=== PATIENT | female | born 1990 | race Caucasian/White ===

== ENCOUNTER 2024-04-20 13:52 | Emergency (ER) | payer MEDICAID, SELFPAY ==
[2024-04-20 14:12] VITALS: BP 100/75; PULSE 80; RESP 16; TEMP 36.8; O2SAT 100
--- NOTE | 2024-04-20 14:13 | HMH.EDGENADL ---
Discharge Plan Disposition Patient Disposition: Home, Self-Care Condition: Good Prescriptions Prescriptions: New amoxicillin-pot clavulanate 875-125 mg tablet 1 tab PO BID Qty: 20 0RF No Action ondansetron 4 mg tablet,disintegrating 4 mg PO Q6H PRN (Reason: nausea and vomiting) Qty: 10 0RF Referrals Follow up/Referrals: Addi Clemens MD [Staff Physician] - See instructions (Second opinion for a infected seroma) Luis Alfredo Fried MD [Primary Care Provider] - See instructions Activity Restrictions/Add. Instructions Additional Instructions/Restrictions: Please take antibiotics until they are gone. I have referred you to general surgery please call make an appointment. Return for any increase in redness drainage pain swelling as needed to the ER Clinical Impressions Clinical Impression: Post-operative complication Qualifiers: Surgical complication system/body Area: skin Surgical complication type: seroma Instructions Patient Instructions: DI for Skin Abscess Discharge ED Provider: Clement Martinez General Adult HPI <ROSEMARY Edwards - Last Filed: 04/20/24 15:04> General Chief complaint: Skin/Abscess/Foreign Body Stated complaint: surgical wound on stomach looks infected Time Seen by Provider: 04/20/24 14:08 History of Present Illness HPI narrative: Patient presents for evaluation of a postoperative complication. Patient had laparoscopic surgery done on March 29 and then subsequently had reoperation for scopic Li approximately 2 weeks later through the same infraumbilical incision. Patient saw her surgeon for complaint of swelling in the operative area and an ultrasound was done which showed a seroma according to the patient. Patient presents now with redness at the right lateral aspect of the infraumbilical incision. Patient reports it is painful and tender but has not been draining. She denies fever chills hemoptysis hematochezia melena nausea vomit diarrhea. Related Data Previous Rx's Medication Instructions Recorded amoxicillin 875 mg-potassium 1 tab PO BID #20 tabs 04/20/24 clavulanate 125 mg tablet ondansetron 4 mg disintegrating 4 mg PO Q6H PRN nausea and 04/20/24 tablet vomiting #10 tabs Allergies Allergy/AdvReac Type Severity Reaction Status Date / Time sulfamethoxazole Allergy Unknown Unverified 11/16/17 14:10 [From BACTRIM] trimethoprim [From BACTRIM] Allergy Unknown Unverified 11/16/17 14:10 PFS <ROSEMARY Edwards - Last Filed: 04/20/24 15:04> [facility] Disclaimer: The information contained in this section may have been updated after the patient was seen, as this information can be updated by other users. Social History (Updated 04/20/24 @ 15:04 by ROSEMARY Edwards) Smoking Status: Never smoker alcohol intake: never current occupational status: employed Travel in the last 8 weeks: None <ROSEMARY Edwards - Last Filed: 04/20/24 15:04> ROS Obtained: Yes Systems reviewed as appropriate & no additional complaints except as documented Physical Exam <ROSEMARY Edwards - Last Filed: 04/20/24 15:04> General General appearance: alert and in no apparent distress Respiratory Respiratory exam: Present normal lung sounds bilaterally Cardiovascular Cardiovascular exam: Present regular rate Abdominal Exam Abdominal exam: Present soft; Absent tenderness (At the for umbilical surgical incision) Neurological Exam Neurological exam: Present alert and oriented X3 Skin Skin exam: Present warm, dry and erythema (Right lateral infraumbilical incision) Medical Decision Making <ROSEMARY Edwards - Last Filed: 04/20/24 15:04> Zeferino Inquiry Pt receiving controlled substance: No Vital Signs: 04/20/24 14:12 04/20/24 15:00 Temperature 98.2 F 97.9 F Temperature Source Oral Oral Pulse Rate 63 Pulse Rate [Left Radial] 80 Respiratory Rate 16 18 Blood Pressure 126/68 Blood Pressure [Right Arm] 100/75 L Blood Pressure Mean [Right Arm] 83 Blood Pressure Source Automatic Cuff Blood Pressure Position Sitting 02 Sat by Pulse Oximetry 100 Oxygen Delivery Method Room Air Orders (Tests/Meds): ED MEDICATIONS Discontinued Medications Generic Name Dose Route Start Last Admin Trade Name Freq PRN Reason Stop Dose Admin Amoxicillin/Clavulanate Potassium 1 each 04/20/24 14:29 04/20/24 14:40 Amoxicillin/Clavulanate Potassium 875/125mg Tablet PO 04/20/24 14:30 1 each ONCE ONE Administration Medical Decision Narrative: In summary patient is a very pleasant 34-year-old female who presents to the emergency department for evaluation of postoperative surgical site complication. Patient is hemodynamically stable upon arrival, afebrile. Physical exam is remarkable for superficial erythema at the right lateral aspect of her infraumbilical surgical incision. The borders have been marked with an ink pen by myself. I do not feel a stitch protruding but it appears to be closed with subcuticular stitch Monocryl. There is no drainage from the surgical site I do not feel fluctuance immediately underneath the surgical incision. Differential diagnosis includes cellulitis versus stitch abscess versus infected seroma. As patient has already had evaluation by her surgeon with an ultrasound that definitively confirmed a seroma further workup is deferred. Initial intervention is oral antibiotics with first dose here. Given that this likely requires surgical evaluation for possible incision and drainage patient is referred to general surgery as an outpatient. Patient discharged with a prescription for Augmentin with first dose given here. <Clement Martinez MD - Last Filed: 04/21/24 08:23> Vital Signs: 04/20/24 14:12 04/20/24 15:00 Temperature 98.2 F 97.9 F Temperature Source Oral Oral Pulse Rate 63 Pulse Rate [Left Radial] 80 Respiratory Rate 16 18 Blood Pressure 126/68 Blood Pressure [Right Arm] 100/75 L Blood Pressure Mean [Right Arm] 83 Blood Pressure Source Automatic Cuff Blood Pressure Position Sitting 02 Sat by Pulse Oximetry 100 Oxygen Delivery Method Room Air Orders (Tests/Meds): ED MEDICATIONS Discontinued Medications Generic Name Dose Route Start Last Admin Trade Name Freq PRN Reason Stop Dose Admin Amoxicillin/Clavulanate Potassium 1 each 04/20/24 14:29 04/20/24 14:40 Amoxicillin/Clavulanate Potassium 875/125mg Tablet PO 04/20/24 14:30 1 each ONCE ONE Administration Medical Decision Narrative: In summary patient is a very pleasant 34-year-old female who presents to the emergency department for evaluation of postoperative surgical site complication. Patient is hemodynamically stable upon arrival, afebrile. Physical exam is remarkable for superficial erythema at the right lateral aspect of her infraumbilical surgical incision. The borders have been marked with an ink pen by myself. I do not feel a stitch protruding but it appears to be closed with subcuticular stitch Monocryl. There is no drainage from the surgical site I do not feel fluctuance immediately underneath the surgical incision. Differential diagnosis includes cellulitis versus stitch abscess versus infected seroma. As patient has already had evaluation by her surgeon with an ultrasound that definitively confirmed a seroma further workup is deferred. Initial intervention is oral antibiotics with first dose here. Given that this likely requires surgical evaluation for possible incision and drainage patient is referred to general surgery as an outpatient. Patient discharged with a prescription for Augmentin with first dose given here. I was consulted by the CARLOS ALBERTO, and we discussed the complexity of the problems being addressed. I approved the treatment and management plan for this patient?s care in the Emergency Department, thus performing a substantive portion of the medical decision making. Clement Martinez MD Critical Care <ROSEMARY Edwards - Last Filed: 04/20/24 15:04> Critical Care Time Critical Care Time: No
[2024-04-20] MEDS: AMOXICILLIN/CLAVULANATE POTASSIUM 875/125MG TABLET 1 EACH PO (14:40)
[2024-04-20 15:00] VITALS: BP 126/68; PULSE 63; RESP 18; TEMP 36.6; O2SAT 99
== END 2024-04-20 15:00 | disposition home or self-care (01) ==
PROVIDERS: Emergency Provider Emergency Medicine; PCP Family Medicine
DX: L76.34 Postprocedural seroma of skin and subcutaneous tissue following other procedure (principal)
CPT/HCPCS: 99283

== ENCOUNTER 2024-04-20 17:37 | Emergency (ER) | payer MEDICAID, SELFPAY ==
[2024-04-20 17:39] VITALS: BP 117/70; PULSE 84; RESP 16; TEMP 36.7; O2SAT 100
--- NOTE | 2024-04-20 18:15 | ED_ITS ---
<Statement entered by Villa Obando MD - 04/20/24 23:01> I was consulted by the CARLOS ALBERTO, and we discussed the complexity of the problems being addressed. I approved the treatment and management plan for this patient's care in the emergency department, thus performing a substantive portion of the medical decision making. Villa Obando MD, DANIEL, FACEP Discharge Plan Disposition Patient Disposition: Home, Self-Care Condition: Good Prescriptions Prescriptions: New ondansetron 4 mg tablet,disintegrating 4 mg PO Q6H PRN (Reason: nausea and vomiting) Qty: 10 0RF No Action amoxicillin-pot clavulanate 875-125 mg tablet 1 tab PO BID Qty: 20 0RF Referrals Follow up/Referrals: Marce Watkins DO [Staff Physician] - See instructions (Second opinion) Luis Alfredo Fried MD [Primary Care Provider] - See instructions Activity Restrictions/Add. Instructions Additional Instructions/Restrictions: Follow-up with your PCP. You have been referred to Dr. Watkins. Clinical Impressions Clinical Impression: Nausea & vomiting Instructions Patient Instructions: DI for Diarrhea and Traveler's Diarrhea -- Adult, DI for Diarrhea and Traveler's Diarrhea -- Child, DI for Nausea -- Adult, DI for Nausea -- Child Discharge ED Provider: Villa Obando General Adult HPI General Chief complaint: Nausea/Vomiting/Diarrhea Stated complaint: vomiting Time Seen by Provider: 04/20/24 18:15 History of Present Illness HPI narrative: Patient presents for evaluation of nausea vomiting. Patient was here previously with cellulitis of the surgical site with question of concern for infected seroma. Patient took oral antibiotic here without difficulty however after leaving she had an episode of nausea vomiting and has returned with concerns about her surgical site. Patient thinks her symptoms are directly related to the area in her abdomen states she feels shaky and chilling with increased symptoms in the area. Please see my previous dictated H&P for full story. Related Data Previous Rx's Medication Instructions Recorded amoxicillin 875 mg-potassium 1 tab PO BID #20 tabs 04/20/24 clavulanate 125 mg tablet ondansetron 4 mg disintegrating 4 mg PO Q6H PRN nausea and 04/20/24 tablet vomiting #10 tabs Allergies Allergy/AdvReac Type Severity Reaction Status Date / Time sulfamethoxazole Allergy Unknown Unverified 11/16/17 14:10 [From BACTRIM] trimethoprim [From BACTRIM] Allergy Unknown Unverified 11/16/17 14:10 PFSH [facility] Disclaimer: The information contained in this section may have been updated after the patient was seen, as this information can be updated by other users. Social History (Updated 04/20/24 @ 15:04 by ROSEMARY Edwards) Smoking Status: Never smoker alcohol intake: never current occupational status: employed Travel in the last 8 weeks: None ROS Obtained: Yes Systems reviewed as appropriate & no additional complaints except as documented Physical Exam General General appearance: alert Respiratory Respiratory exam: Present normal lung sounds bilaterally Cardiovascular Cardiovascular exam: Present regular rate and normal rhythm Neurological Exam Neurological exam: Present alert and oriented X3 Other Other exam information: At the right lateral aspect of her surgical site in the infraumbilical area there is an area that was previously marked with an ink pen by myself earlier today that shows significant regression of the erythema from the border of the area. No drainage no fluctuance Medical Decision Making Medical Records Medical records reviewed: Yes I reviewed the patient's medical records. Zeferino Inquiry Pt receiving controlled substance: No Vital Signs: 04/20/24 17:39 Temperature 98.0 F Temperature Source Oral Pulse Rate [Radial] 84 Respiratory Rate 16 Blood Pressure [Left Arm] 117/70 Blood Pressure Mean [Left Arm] 85 Blood Pressure Source [Left Arm] Automatic Cuff Blood Pressure Position [Left Arm] Sitting 02 Sat by Pulse Oximetry 100 Oxygen Delivery Method Room Air Lab Data Lab results reviewed: Yes I reviewed the patient's lab results. Lab Results 04/20/24 19:54: WBC 6.1, RBC 4.33, Hgb 13.3, Hct 41.5, MCV 95.8, MCH 30.7, MCHC 32.0, RDW 13.1, Plt Count 298, MPV 8.1, Neut % (Auto) 66.4, Lymph % (Auto) 24.0, Bullock % (Auto) 5.5, Eos % (Auto) 3.1, Baso % (Auto) 0.9, Neut # (Auto) 4.0, Lymph # (Auto) 1.5, Bullock # (Auto) 0.3, Eos # (Auto) 0.2, Baso # (Auto) 0.1, Sodium 141, Potassium 3.9, Chloride 103, Carbon Dioxide 30, Anion Gap 11.9, BUN 13, Creatinine 0.70, Estimated Creat Clear 97, Estimated GFR 97, Est GFR ( Amer) 117, Glucose 73 L, Calcium 10.0, Total Bilirubin 0.5, AST 26, ALT 20, Alkaline Phosphatase 42, Total Protein 8.3 H, Albumin 5.1 H, Globulin 3.2, Albumin/Globulin Ratio 1.6 04/20/24 19:54 04/20/24 19:54 Orders (Tests/Meds): ED MEDICATIONS Discontinued Medications Generic Name Dose Route Start Last Admin Trade Name Freq PRN Reason Stop Dose Admin Lactated Ringer's 1,000 mls @ 999 mls/hr 04/20/24 18:52 Lactated Ringer's 1000 Ml Bag IV 04/20/24 19:52 .Q1H1M ONE Ondansetron HCl 4 mg 04/20/24 18:54 Ondansetron 4mg/2ml Vial IV 04/20/24 18:55 ONCE ONE ORDERS Category Date Time Status POCUS Point of Care (ER Only) Stat Exams 04/20/24 19:10 Taken CBC w/Auto Diff [Complete Blood Count Auto Diff] Stat Lab 04/20/24 19:54 Completed CMP [Comprehensive Metabolic Panel] Stat Lab 04/20/24 19:54 Completed UA [Urinalysis and Microscopic] Stat Lab 04/20/24 19:28 Ordered Blood Culture Stat Micro 04/20/24 19:50 Received Medical Decision Narrative: In summary patient is a 34-year-old female who presents to the emergency department for evaluation of nausea vomiting. Patient is hemodynamically stable upon arrival, afebrile. Physical exam is remarkable for regression of the erythema from the previously marked borders of erythema. Differential diagnosis includes cellulitis versus other infection versus anxiety versus infective seroma etc. Initial workup will be conducted with hematologic labs [id number] ultrasound. Initial workup reviewed by me shows that her hematologic labs are nonactionable and her [id number] ultrasound showed a small fluid collection beneath the surgical site. Upon repeat evaluation patient informed of her negative workup and per her discussion with Dr. Obando earlier patient was referred to Dr. Watkins for second opinion. Given this appropriate for discharge with continued Augmentin p.o. and I have added Zofran sent to her pharmacy. Critical Care Critical Care Time Critical Care Time: No
[2024-04-20] MEDS: ONDANSETRON 4MG/2ML VIAL 4 MG IV (19:30)
[2024-04-20] MEDS: LACTATED RINGERS 1000ML 1,000 ML 999 ML IV (19:30)
[2024-04-20 20:10] LABS: Chloride 103 mmol/L (98-107); Potassium 3.9 mmoL/L (3.5-5.1); Sodium 141 mmol/L (136-145)
[2024-04-20 20:12] LABS: Basophils # 0.1 K/mm3 (0-0.2); Basophils % 0.9 % (0.1-2.0); Eosinophils # 0.2 K/mm3 (0.0-0.4); Eosinophils % 3.1 % (0.1-12.0); Hematocrit 41.5 % (37.0-47.0); Hemoglobin 13.3 g/dL (12.2-16.2); Lymphocytes # 1.5 K/mm3 (0.7-4.5); Mean Corpuscular Hemoglobin 30.7 pg (27.0-31.2); Mean Corpuscular Volume 95.8 fl (81-99); Mean Platelet Volume 8.1 fl (7.4-10.4); Monocytes # 0.3 K/mm3 (0.1-1.0); Monocytes % 5.5 % (1.7-9.3); Neutrophils % 66.4 % (37.0-80.0); Platelet Count 298 K/mm3 (142-424); Red Blood Count 4.33 M/mm3 (4.20-5.40); Red Cell Distribution Width 13.1 % (11.5-17.5); White Blood Count 6.1 K/mm3 (4.8-10.8)
[2024-04-20 20:13] LABS: Alanine Aminotransferase 20 U/L (12-78); Albumin Level 5.1 g/dl (3.5-5.0); Albumin/Globulin Ratio 1.6 (1.1-1.8); Alkaline Phosphatase 42 U/L (38-126); Anion Gap 11.9 mEq/L (5-15); Aspartate Amino Transferase 26 U/L (14-36); Bilirubin,Total 0.5 mg/dl (0.2-1.3); Blood Urea Nitrogen 13 mg/dl (7-17); Carbon Dioxide 30 mmol/L (22.0-30.0); Creatinine Clearance Estimated 97 mL/min (50-200); Estimated Glomerular Filt Rate 97 ml/min (>60); GFR (African American) 117 ML/MIN (>60); Globulin 3.2 g/dL (1.3-3.2); Total Protein,Serum 8.3 g/dl (6.3-8.2)
[2024-04-20 20:14] LABS: Glucose 73 mg/dl (74-100)
[2024-04-20 20:58] VITALS: BP 128/74; PULSE 64; RESP 16; TEMP 36.8; O2SAT 99
== END 2024-04-20 21:00 | disposition home or self-care (01) ==
PROVIDERS: Physician Assistant; Emergency Provider Student in an Organized Health Care Education/Training Program; PCP Family Medicine
DX: R11.2 Nausea with vomiting, unspecified (principal)
CPT/HCPCS: 80053; 85025; 87040; 96361; 96374; 99284; J2405

== ENCOUNTER 2025-08-18 21:28 | Observation (INO) | payer MEDICAID, SELFPAY ==
[2025-08-18] VITALS (17 sets, daily range): BP systolic 84–117; BP diastolic 44–77; PULSE 66–94; RESP 18; TEMP 36.7; O2SAT 98–100; BMI 19.7
--- OUTSIDE RECORDS SUMMARY | 2025-08-18 21:35 | XMS_ITS | Clinical Summary ---
Author Organization [facility] Address [address] [facility] [place] [address] Phone Care Team Providers Care Occupational Therapy Supervisor Name Role Phone Steffanie Hickey MD Unavailable [phone] Fariha MICHEL MD, Luis Alfredo [facility] P rovider Harish Bonner MD Unavailable [phone] Allergies Active Allergy Reactions Criticality Noted Date Comments Sulfamethoxazole-Trimethopri m Rash Low Lips and tongue blisters subjectively Sulfamethoxazole Hives High 08/30/2022 Trimethoprim Hives High 08/30/2022 Medications LAVENDER OIL MISC by Misc.(Non-Dr ug; Combo Route) route. lavender capsules Active ondansetron (ZOFRAN) 4 mg Oral Tablet Take by mouth every 8 hours as needed for Nausea. Active ergocalciferol (DRISDOL) 1,250 mcg (50,000 unit) Oral Capsule EVERY WEEK Active LEVOthyroxine (SYNTHROID) 25 mcg Oral TabletIndications:P rimary hypothyroidism Take 1 Tablet by mouth daily. 30 Tablet 6 5 Active Active Problems Patient Care Coordination No te Formatting of this note migh t be different from the original. Tobacco Cessation: I. Behavioral modifications: 1. Make smoking it's own behavior. 2. Change your habit. 3. Make parts of your life smoke free. 4. ID it, Stop it, Replace it. 5. Reward yourself. II. Physical addiction: Nicotine gum. III. Urges Medicines. Problem Noted Date Diagnosed Date Primary hypothyroidism 05/01/2025 Irritable bowel syndrome with constipation 02/21 Abnormal weight loss 02/16/2025 Assessment & Plan (02/16/2025 12:28 PM EDT): Will rule out hormonal causes of weight loss. Chronic autoimmune thyroiditis 02/15/2025 Assessment & Plan (02/16/2025 12:27 PM EDT): The patient has a history of chronic autoimmune thyroiditis. The nature of her condition was reviewed with the patient in detail. Will obtain thyroid function test today and decide on the need for additional intervention PTSD (post-traumatic stress disorder) 07/27/2023 Major depressive disorder, r ecurrent episode, moderate degree 07/27/2023 Goiter, nodular 09/11/2022 Assessment & Plan (02/16/2025 12:28 PM EDT): Physical exam reveals barely palpable thyroid gland with no obvious nodules. She describes the same swallowing problems as she did during her previous visit in August 2022. Her swallowing problems are not related to underlying thyroid disease. She is scheduled to see safety security officer the next week. She may require ENT consultation. She is to have a thyroid ultrasound repeated to ensure done medical stability Assessment & Plan (09/11/2022 11:39 AM EDT): The patient was found to have nodular goiter on physical exam. Thyroid ultrasound revealed bilateral thyroid nodules. The nature of condition as well as the results of work up were discussed with patient in detail. We will obtain the thyroid function test and measure antithyroid antibodies. The indications for fine-needle aspiration biopsy of the thyroid nodule to rule out thyroid cancer were presented to the patient in detail. All the questions were answered. The patient agrees to proceed with fine-needle aspiration biopsy in the near future. The recommendations will be made based on the biopsy results. Iron deficiency anemia 09/11/2022 Assessment & Plan (09/11/2022 11:40 AM EDT): Will rule out iron deficient anemia as a potential contributing factor Vitamin B12 deficiency 09/11/2022 Assessment & Plan (09/11/2022 11:40 AM EDT): Will measure vitamin B12 Chronic fatigue 09/11/2022 Assessment & Plan (09/11/2022 11:39 AM EDT): Will proceed with a work-up for treatable causes of fatigue. Dysphagia 09/11/2022 Assessment & Plan (09/11/2022 11:40 AM EDT): Dysphagia is not related to small soft nodule goiter. The patient was advised to see safety security officer uterine contractions in third trimester, antepartum 02/07/2021 Reilly Duncan contractions 01/31/2021 Nausea and vomiting in 03/28/2019 Overview (11/14/2020): Doesn't like to take medications for symptoms Encounter for supervision of normal in second trimester 02/23/2019 Overview (12/17/2020): *Had unassisted home last ~ saw us until 30 wks and then transferred to Dr. Gary until 38 wks~he was not aware that she was having home *~ She is undecided this about home CNM pt GS: requested-->NIPT low risk BRUNO by LMP PNL's nml Anatomy GCT GBS Cannabis abuse 02/23/2019 Overview (03/03/2019): Using via vape pen for nausea--> advised cessation + UDS @ [facility] Resolved Problems Problem Noted Date Diagnosed Date Resolved Date Urinary tract infection in m other during first trimester of 02/23/2019 11/14/2020 Overview (02/23/2019): Macrobid Rx'd for UTI based on sensitivities--> will need to rescreen to ensure clearance given ESBL production noted on culture Tobacco abuse disorder 02/19/201402/23 Immunizations Immunization Administration Dates Next Due DTaP 07/09/2003, 3,1992,1991 HPV Quadrivalent 02/11/2007 Hepatitis B, Unspecified Formulation 11/30/2003, 07/09/2003,06/08/2003 HiB, Unspecified Formulation 06/20/1993,08/21/19 92,1992 IPV 06/20/1993,1992,1992 MMR 06/08/2003,12/09/1993 Meningococcal Conjugate 02/11/2007 Varicella 02/11/2007 Surgical History Surgery Date Site/Laterality Comments WISDOM TOOTH EXTRACTION LAPAROSCOPY 11/29/2022 - 11/28/2023 Left left ovary removed LAPAROSCOPY 11/29/2023 - 11/28/2024 fallopian tube removed Medical History Medical History Date Comments depression first baby Anxiety disorder Urinary tract infection Goiter, nodular 09/11/2022 Iron deficiency anemia 09/11/2022 Nausea and vomiting in 03/28/2019 GERD (gastroesophageal reflux disease) Social History Tobacco Use Types Packs/Day Years Used Date Smoking Tobacco: Some Days Cigarettes Last attempted to quit: 06/29/2016 Smokeless Tobacco: Current Tobacco Cessation:Ready to Q uit: Not Asked; Counseling Given: Not Answered Alcohol Use Standard Drinks/Week Comments No 0 (1 standard drink = 0.6 oz pur e alcohol) Sexually Active Control Partners Comments Not Currently Abstinence Male Comments No Sex and Gender Information Value Date Recorded Sex Assigned at Not on file Legal Sex Female 9:37 PM EDT Gender Identity Not on file Sexual Orientation Not on file Obstetrics History Para Term AB IAB SAB Ectopic Multiple Livin g Live Births 3 2 2 2 2 Date Outcome GA Total Labor Labor/2nd/3rd Weight Sex Type Anes PTL Jessenia A1 A5 Name Clin 2014 Term 39w 0d 7 lb 8 oz (3.402 kg) M Vag-S pont Living 2018 Term 39w 2d F Vag-S pont Living Last Filed Vital Signs Vital Sign Reading Time Taken Comments Blood Pressure 109/58 02/25/2025 5:30 PM EDT Pulse 69 02/25/2025 6:30 PM EDT Temperature 36.7 C (98.1 F) 02/25/2025 2:20 PM EDT Respiratory Rate 12 02/25/2025 6:30 PM EDT Oxygen Saturation 100% 02/25/2025 6:30 PM EDT Inhaled Oxygen Concentration - - Weight 51.3 kg (113 lb) 02/23/2025 2:12 PM EDT Height 162.6 cm (5' 4 ) 02/23/2025 2:12 PM EDT Body Mass Index 19.4 02/23/2025 2:12 PM EDT Plan of Treatment Upcoming Encounters Date Type Department Care Team (Late st Contact Info) Description 08/29/2025 3:00 PM EDT Office Visit [facility] [place] [address] [facility] [address] [place] [address] Steffanie Hickey MD [address] [place], [place] [id number] Health Maintenance Due Date Last Done Comments Pneumococcal Vaccine 0-49 (1 of 2 - PCV) 2011 DTaP/TDaP/Td (5 - Tdap) 07/09/2013 07/09/20 03, 06/20/1993, 1992, Additional history exists Annual Wellness Exam 06/06/2015 06/06/2014 (Postpone d) Cervical Cancer Screening 05/13/2021 Pap Smear 05/13/2021 05/13/2020, 01/28, 06/06/2014 (Postponed), Additional history exists HPV/Pap Cotest 2022 COVID-19 Vaccine ( season) 2025 Influenza Vaccine (#1) 2025 8 (Declined), 12/16/2016 (Declined) Hepatitis B Vaccine Completed 11/30/2003, 07/09/2003, 06/08/2003 Meningococcal B Vaccine Aged Out No l onger eligible based on patient's age to complete this topic Goals Goal Patient Goal Type Associated Problems Recent Progress Patient-Stated? Author Maintain a healthy diet, exercise regularly and maintain an ideal body weight General No Melonie Alexis MA Stay Tobacco Free Lifestyle No Melonie Alexis MA Procedures Procedure Name Priority Date/Time Associated Diagnosis Comments ARTISTS' MODEL CYTOLOGY REQUEST (PAP ONLY) Routine 02/23/2019 2:09 PM EDT Encounter for supervision of other normal in first trimester from Last 3 Months or Most Recently Relevant to Health Maintenance Results * ARTISTS' MODEL CYTOLOGY REQUEST (PAP ONLY) (02/23/2019 2:09 PM EDT) CASE REPORT Gynecologic Cytology Report Case: [id number] Authorizing Provider: Magdalena Rocha, Collected: 02/23/2019 1409 RECYCLING OPERATIONS MANAGER Ordering Location: [facility] Received: 02/23/2019 1409 First Screen: Sosa Moran CT Specimen: LIQUID-BASED PAP - CERVICAL/ENDOCERV ICAL, Cervix, Endocervical 02/27/2019 11:47 AM EDT [facility] PAP FINAL DIAGNOSIS Negative for intraepithelial lesion or malignancy 02/27/2019 11:47 AM EDT [facility] at 1146 EDT MICROSCOPIC DESCRIPTION Microscopic examination is performed and the findings corroborate the diagnosis. 02/27/2019 11:47 AM EDT [facility] PAP SMEAR ADEQUACY Satisfactory for evaluation 02/27/2019 11:47 AM EDT [facility] PAP ORGANISMS NOTED Abundant bacteria present. 02/27/2019 11:47 AM EDT [facility] ENDOCERVICAL T-ZONE Transformation zone present 02/27/2019 11:47 AM EDT [facility] EMBEDDED IMAGES 9 11:47 AM EDT [facility] PAP DISCLAIMER The Pap Smear is a screening test that aids in the detection of cervical cancer and cancer precursors. Both false positive and false negative results can occur. The test should be used at regular intervals, and positive results should be confirmed before definitive therapy. Processed using the ThinPrep Network Control Operator Automated cytology screening device ([employer]). 02/27/2019 11:47 AM EDT [facility] Thin Prep ENDOCERVICAL STRUCTURE / Unknown 02/23/2019 2:09 PM EDT 02/23/2019 2:09 PM EDT us Magdalena Rocha RECYCLING OPERATIONS MANAGER CYTOLOGY ORDERABLES Fi nal Result [facility] [address] [place] [address] from Last 3 Months or Most Recently Relevant to Health Maintenance Insurance [employer] [place] [id number] [place] [employer] [place] [id number] [place] [facility] [place] [address] [facility] [id number] MDR Care Teams Occupational Therapy Supervisor Relationship Specialty Start Date End Date Luis Alfredo Fried III, MD [address] [place] [phone] PCP - General Family Medicine 09/23/23 Steffanie Hickey MD [address] [place] [address] Consulting Physician Internal Medicine-Endocrinology, Diabetes & Metabolism 09/11/22 Harish Bonner MD [address] [facility] [address] [place] [address] Otolaryngology 02/07/24
--- OUTSIDE RECORDS SUMMARY | 2025-08-18 21:35 | XMS_ITS | Referral Summary ---
Author Organization [facility] Address [address] [place] [address] [place] [address] Care Team Providers Care Tactical Response Group Officer Name Role Phone Pcp, None Primary Care Provider [phone] Allergies Active Allergy Reactions Criticality Noted Date Comments Sulfamethoxazole-Trimethoprim Hives High 2015 Medications No known medications Active Problems Problem Noted Date Diagnosed Date Club foot, , affecting care of mother, antepartum, not applicable or unspecified fetus 09/04/2015 Social History Tobacco Use Types Packs/Day Years Used Date Smoking Tobacco: Every Day Smokeless Tobacco: Never Alcohol Use Standard Drinks/Week Comments No 0 (1 standard drink = 0.6 oz pur e alcohol) Comments No Sex and Gender Information Value Date Recorded Sex Assigned at Not on file Legal Sex Female 5:12 PM EDT Gender Identity Not on file Sexual Orientation Not on file Last Filed Vital Signs Vital Sign Reading Time Taken Comments Blood Pressure 96/54 05/13/2020 2:01 PM EDT Pulse 82 10/29/2015 7:37 AM EST Temperature 36.8 C (98.2 F) 05/13/2020 2:01 PM EDT Respiratory Rate 16 10/29/2015 7:37 AM EST Oxygen Saturation 98% 10/27/2015 6:12 AM EST Inhaled Oxygen Concentration - - Weight 53.1 kg (117 lb) 05/13/2020 2:01 PM EDT Height 160 cm (5' 3 ) 05/13/2020 2:01 PM EDT Body Mass Index 20.73 05/13/2020 2:01 PM EDT Plan of Treatment Not on file Procedures Procedure Name Priority Date/Time Associated Diagnosis Comments CYTOLOGY BAG MAKER Today 05/13/2020 5:50 PM EDT Encounter for gynecological examination without abnormal finding from Last 3 Months or Most Recently Relevant to Health Maintenance Results * (ABNORMAL) CYTOLOGY BAG MAKER (05/13/2020 5:50 PM EDT) CYTOLOGY-BAG MAKER CYTOLOGY GYNECOLOGICAL REPORT Name: REYESKALIE Vieyra. EPI#: [id number] Case #: [id number] Final Cytologic Diagnosis A. Cervical/Endocervic al thinprep pap: Adequacy: Unsatisfactory for evaluation. Specimen processed and examined, but unsatisfactory for evaluation of epithelial abnormality due to scant cellular material/acellulari ty. Interpretation: Adequacy Unsatisfactory This specimen has been analyzed by the SCIenergyPrep Imaging System ([employer] an automated imaging and review system, which assists the assistant food service manager and/or pathologist in evaluation of cells on Thinprep Pap tests. Electronically Signed Out By WILLIAM [facility] Source of Specimen(s) A: Cervical/Endocervic al thinprep pap Clinical History Date of Last Menstrual Period: 04/25/2020 Signed out at [facility], [address] [place] [address] [facility] Non-Formatted Report (A) [facility] 05/13/2020 5:50 PM EDT 05/15/2020 9:42 AM EDT us Philip Gray Jr., MD PATHOLOGY/CYTOLOGY ORDER ZENON Final Result Performing Organization Address City/State/[facility] Co de Phone Number [facility] [address] [place] [address] from Last 3 Months or Most Recently Relevant to Health Maintenance Insurance [employer] Care Teams Tactical Response Group Officer Relationship Specialty Start Date End Date Pcp, Won, PCP - General Internal Medicine 07/15/16
--- OUTSIDE RECORDS SUMMARY | 2025-08-18 21:35 | XMS_ITS | Encounter Summary ---
Author Organization [facility] Address [address] [place] [address] [place] [address] Phone Care Team Providers Care Underground Mine Machinery Mechanic Name Role Phone Pcp, Pending Only Primary Care Provider [phone] Pcp None Primary Care Provider [phone] Encounter Details Date Type Department Care Team (Late st Contact Info) Description 07/04/2015 [facility] [address] [place] [phone] Lula Cruz Registered Nurse Social History Tobacco Use Types Packs/Day Years Used Date Smoking Tobacco: Never Assessed Comments Yes Sex and Gender Information Value Date Recorded Sex Assigned at Not on file Legal Sex Female 5:12 PM EDT Gender Identity Not on file Sexual Orientation Not on file documented as of this encounter Plan of Treatment Not on file documented as of this encounter Visit Diagnoses Not on filedocumented in this encounter Care Teams Underground Mine Machinery Mechanic Relationship Specialty Start Date End Date Pcp, Pending Only, [place], [place] [id number] PCP - General Internal Medicine 06/19/15 07/14/16 Pcp, None, [place] [address] PCP - General Internal Medicine 07/15/16 documented as of this encounter
--- OUTSIDE RECORDS SUMMARY | 2025-08-18 21:35 | XMS_ITS | Encounter Summary ---
Author Organization [facility] [place] [address] Phone Care Team Providers Care Public Health Engineer Name Role Phone Pcp, None Primary Care Provider [phone] Reason for Referral * Radiology Services (Routine) - Closed Specialty Diagnoses / Procedures Referred By Zulma t Referred To Contact Procedures OB US STANDARD SECOND OR THIRD TRIMESTER HISTORICAL MED Referral ID Status Reason Start Date Expiration Date V isits Requested Visits Authorized [id number] Closed Specialty Services Required 05/05/2019 05/04/2020 150 150 Encounter Details Date Type Department Care Team (Late st Contact Info) Description 05/05/2019 SCAN [facility] [phone] [place] [address] Social History Tobacco Use Types Packs/Day Years Used Date Smoking Tobacco: Every Day Alcohol Use Standard Drinks/Week Comments No 0 (1 standard drink = 0.6 oz pur e alcohol) Comments No Sex and Gender Information Value Date Recorded Sex Assigned at Not on file Legal Sex Female 5:12 PM EDT Gender Identity Not on file Sexual Orientation Not on file documented as of this encounter Plan of Treatment Not on file documented as of this encounter Procedures Procedure Name Priority Date/Time Associated Diagnosis Comments OB US STANDARD SECOND OR THI RD TRIMESTER Routine 04/27/2019 documented in this encounter Results * OB US STANDARD SECOND OR THIRD TRIMESTER (04/27/2019) Anatomical Region Laterality Modality Abdomen, Pelvis Ultrasound us Historical Med OBUS Final Result documented in this encounter Visit Diagnoses Not on filedocumented in this encounter Care Teams Public Health Engineer Relationship Specialty Start Date End Date Pcp, None, PCP - General Internal Medicine 07/15/16 documented as of this encounter
--- OUTSIDE RECORDS SUMMARY | 2025-08-18 21:35 | XMS_ITS | Clinical Summary ---
Author Organization [facility] Address [address] [place] [address] [place] [address] Care Team Providers Care Flat Examiner Name Role Phone Pcp, None MD Primary Care Provider [phone] Allergies Active Allergy Reactions Criticality Noted Date [...] 05/13/2020 2:01 PM EDT Plan of Treatment Health Maintenance Due Date Last Done Comments HPV (2 - 2-dose series) 08/14/2007 02/11/2007 DTap,Tdap,and Td (5 - Tdap) 07/09/201306/29, 06/20/1993, 1992, Additional history exists Pap Screening 05/13/2023 05/13/2020 Influenza Vaccine (#1) 2025 RSV Vaccine (60+ or ) (1 - 1-dose 75+ series) 2067 Meningococcal conjugate valent 4 (MCV4) Aged Out 02/11/2007 No longer eligible based on patient's age to complete this topic Pneumococcal 0-49 Aged Out No longer eligible based on patient's age to complete this topic RSV Immunization (<20 months) Aged Out No longer eligible based on patient's age to complete this topic Procedures Procedure Name Priority Date/Time Associated Diagnosis Comments CYTOLOGY MACHINE OPERATOR GENERAL Today 05/13/2020 5:50 PM EDT Encounter for gynecological examination without abnormal finding from Last 3 Months or Most Recently Relevant to Health Maintenance Results * (ABNORMAL) CYTOLOGY MACHINE OPERATOR GENERAL (05/13/2020 5:50 PM EDT) CYTOLOGY-MACHINE OPERATOR GENERAL CYTOLOGY GYNECOLOGICAL REPORT Name: KALIE REYES EPI#: [id number] Case #: [id number] Final Cytologic Diagnosis A. Cervical/Endocervic al thinprep pap: Adequacy: Unsatisfactory for evaluation. Specimen processed and examined, but unsatisfactory for evaluation of epithelial abnormality due to scant cellular material/acellulari ty. Interpretation: Adequacy Unsatisfactory This specimen has been analyzed by the ThinPrep Imaging System ([employer] an automated imaging and review system, which assists the oven baker and/or pathologist in evaluation of cells on Thinprep Pap tests. Electronically Signed Out By WILLIAM Bryant [facility] Source of Specimen(s) A: Cervical/Endocervic al thinprep pap Clinical History Date of Last Menstrual Period: 04/25/2020 Signed out at [facility], [address] [facility], [facility] Non-Formatted Report (A) [facility] 05/13/2020 5:50 PM EDT 05/15/2020 9:42 AM EDT us Philip Gary Jr., MD PATHOLOGY/CYTOLOGY ORDER ZENON Final Result [facility] [address] [place] [address] from Last 3 Months or Most Recently Relevant to Health Maintenance Insurance Member Subscriber Plan / Payer (Ef fective 2018-Present) Name:Kalie Reyes Relation to Subscriber:Self Name:Kalie Reyes Payer ID:[id number] (NAIC) Type:Indemnity Address: [address] [address] Advance Directives * Full Code (Latest Code Status on File) Date Activated Date Inactivated Comments 10/27/2015 12:55 PM 10/29/2015 3:20 PM * Full Code Date Activated Date Inactivated Comments 10/27/2015 5:41 AM 10/27/2015 12:55 PM Care Teams Flat Examiner Relationship Specialty Start Date End Date PcpWon MD PCP - General Internal Medicine 07/15/16
--- OUTSIDE RECORDS SUMMARY | 2025-08-18 21:35 | XMS_ITS | Clinical Summary ---
Author Organization [facility] Address [address] [place] [address] Care Team Providers Care Cable Television Access Coordinator Name Role Phone Arianne Menjivar MD Primary Care Provider Unav ailable Allergies Active Allergy Reactions Criticality Noted Date Comments Sulfamethoxazole-Trimet hoprim Hives,Rash High 10/15/2016 Lips and tongue blisters subjectively Social History Tobacco Use Types Packs/Day Years Used Date Smoking Tobacco: Never Assessed Comments Unknown Sex and Gender Information Value Date Recorded Sex Assigned at Not on file Legal Sex Female 7:18 PM EDT Gender Identity Not on file Sexual Orientation Not on file Last Filed Vital Signs Vital Sign Reading Time Taken Comments Blood Pressure 116/78 07/29/2022 12:29 PM EDT Pulse 70 07/29/2022 12:29 PM EDT Temperature 36.8 C (98.2 F) 07/29/2022 12:29 PM EDT Respiratory Rate 16 07/29/2022 12:29 PM EDT Oxygen Saturation 98% 07/29/2022 12:29 PM EDT Inhaled Oxygen Concentration - - Weight - - Height - - Body Mass Index - - Plan of Treatment Not on [place] [address] Care Teams Cable Television Access Coordinator Relationship Specialty Start Date End Date Arianne Menjivar MD PCP - General 04/11/21
--- OUTSIDE RECORDS SUMMARY | 2025-08-18 21:35 | XMS_ITS | Encounter Summary ---
Author Organization [facility] Address [address] [place] [address] [place] [address] Phone Care Team Providers Care Calciner Operator Name Role Phone Pcp, Pending Only Primary Care Provider [phone] Pcp, None Primary Care Provider [phone] Encounter Details Date Type Department Care Team ([facility] st Contact Info) Description 08/01/2015 OB Documents [facility] Program [address] [place] [phone] Philip Gary Jr., MD Social History Tobacco Use Types Packs/Day Years [...] on filedocumented in this encounter Care Teams Calciner Operator Relationship Specialty Start Date End Date Pcp, Pending Only, [place], [place] [id number] PCP - General Internal Medicine 06/19/15 07/14/16 Pcp, None, [place] [address] PCP - General Internal Medicine 07/15/16 documented as of this encounter
--- OUTSIDE RECORDS SUMMARY | 2025-08-18 21:35 | XMS_ITS | Encounter Summary ---
Author Organization [facility] Address [address] [place] [address] [place] [address] Phone Care Team Providers Care Needle Loom Weaver Name Role Phone PcpWon MD Primary Care Provider [phone] Encounter Details Date Type Department Care Team (Late st Contact Info) Description 10/15/2016 SCAN [facility] [address] [place] [address] Social History Tobacco Use Types Packs/Day Years [...] Procedure Name Priority Date/Time Associated Diagnosis Comments EXTERNAL LAB PATHOLOGY REPORT Routine 07/27/2016 CYTOLOGY Routine 07/22/2016 CYTOLOGY Routine 05/22/2015 documented in this encounter Results * EXTERNAL LAB PATHOLOGY REPORT (07/27/2016) [facility] EXTERNAL LAB Final Result * CYTOLOGY (07/22/2016) [facility] LABORATORY Final Result * CYTOLOGY (05/22/2015) us [facility] Med LABORATORY Final Result documented in this encounter Visit Diagnoses Not on filedocumented in this encounter Care Teams Needle Loom Weaver Relationship Specialty Start Date End Date PcpWon MD PCP - General Internal Medicine 07/15/16 documented as of this encounter
--- OUTSIDE RECORDS SUMMARY | 2025-08-18 21:35 | XMS_ITS | Encounter Summary ---
Author Organization [facility] Address [address] [place] [address] [place] [address] Phone Care Team Providers Care Motor Pool Driver Name Role Phone Pcp, Pending Only Primary Care Provider [phone] Pcp None Primary Care Provider [phone] Encounter Details Date Type Department Care Team (Late st Contact Info) Description 07/04/2015 [facility] [address] [place] [phone] Lula Cruz Registered Nurse Social History Tobacco [...] on filedocumented in this encounter Care Teams Motor Pool Driver Relationship Specialty Start Date End Date Pcp, Pending Only, [place], [place] [phone] PCP - General Internal Medicine 06/19/15 07/14/16 Pcp, None, [place] [address] PCP - General Internal Medicine 07/15/16 documented as of this encounter
--- NOTE | 2025-08-18 21:41 | CT_ITS ---
PROCEDURE INFORMATION: Exam: CT Abdomen And Pelvis With Contrast Exam date and time: 08/18/2025 10:24 PM Age: 35 years old Clinical indication: Abdominal pain; Additional info: Rlq pain/tender TECHNIQUE: Imaging protocol: Computed tomography of the abdomen and pelvis with contrast. Radiation optimization: All CT scans at this facility use at least one of these dose optimization techniques: automated exposure control; mA and/or kV adjustment per patient size (includes targeted exams where dose is matched to clinical indication); or iterative reconstruction. Contrast material: ISOVUE; Contrast volume: 75 ml; Contrast route: IV; COMPARISON: No relevant prior studies available. FINDINGS: Liver: Minimal periportal edema. Lalit's lobe. No mass. Gallbladder and biliary ducts: Unremarkable. No calcified stones. No ductal dilation. Pancreas: Unremarkable. No ductal dilation. Spleen: Unremarkable. No splenomegaly. Adrenal glands: Unremarkable. No mass. Kidneys and ureters: No nephroureterolithiasis or hydroureter. Stomach and bowel: Nonobstructive fluid-filled small bowel and stomach with mucosal enhancement. Moderately large colonic stool burden. Appendix: No evidence of appendicitis. Intraperitoneal space: Unremarkable. No free air. No significant fluid collection. Vasculature: Unremarkable. No abdominal aortic aneurysm. Lymph nodes: Unremarkable. No enlarged lymph nodes. Urinary bladder: Unremarkable as visualized. Reproductive: 2.1 cm probable left ovarian corpus luteal cyst. Ovaries not visualized. Bones/joints: Unremarkable. No acute fracture. Soft tissues: Unremarkable. IMPRESSION: 1. Nonobstructive fluid-filled stomach and small bowel loops. Correlate for gastroenteritis symptoms. 2. Minimal periportal edema likely reflecting hepatic congestion. 3. Probable left ovarian corpus luteal cyst.
--- NOTE | 2025-08-18 21:42 | ED_ITS ---
<Statement entered by Wilver Le MD - 08/18/25 22:58> I was consulted by the CARLOS ALBERTO, and we discussed the complexity of the problems being addressed. I approve the treatment and management plan for this patient's care in the emergency department, thus performing a substantive portion of the medical decision making. Wilver Le MD Discharge Plan Disposition Patient Disposition: Admitted Prescriptions Prescriptions: No Action ondansetron 4 mg tablet,disintegrating 4 mg PO Q6H PRN (Reason: nausea and vomiting) Qty: 10 0RF Referrals Follow up/Referrals: Provider,Referral, [Primary Care Provider, Medical] - See instructions Clinical Impressions Clinical Impression: Abdominal pain, Constipation Instructions Patient Instructions: DI for Acute Abdominal Pain Print Language Print Language: Thai Discharge ED Provider: Wilver Le General Adult HPI <Wilver Le MD - Last Filed: 08/18/25 23:05> General Chief complaint: Abdominal Pain Stated complaint: abdominal pain x 7 Time Seen by Provider: 08/18/25 21:34 History of Present Illness HPI narrative: Kalie Wilson is a 35-year-old female with a history of teratoma status post 2 laparoscopic surgeries, most recently 1 year ago who presents to the emergency department for complaints of right lower quadrant abdominal pain. Patient states that she has had intermittent right lower quadrant abdominal pain over the last week to week and a half. She states over the last 2 days, especially today, it has worsened after eating with abdominal bloating and nausea without vomiting. She reports that she has been constipated recently has been taking MiraLAX and is had some hard stools and is unsure if this is related. She denies any fevers but has had cold chills. She denies any chest pain but states that her abdomen feels swollen Related Data Previous Rx's ?Medication ?Instructions ?Recorded ondansetron 4 mg disintegrating 4 mg PO Q6H PRN nausea and 04/20/24 tablet vomiting #10 tabs Allergies Allergy/AdvReac Type Severity Reaction Status Date / Time sulfamethoxazole (From Allergy Unknown Verified 05/19/24 09:53 BACTRIM) trimethoprim (From BACTRIM) Allergy Unknown Verified 05/19/24 09:53 PFSH <Wilver Le MD - Last Filed: 08/18/25 23:05> PFS Disclaimer: The information contained in this section may have been updated after the patient was seen, as this information can be updated by other users. Medical History (Updated 08/18/25 @ 22:52 by Wilver Le MD) Hyperthyroidism Surgical History (Updated 05/19/24 @ 10:03 by USMAN Taylor) H/O tubal ligation H/O oophorectomy Social History Smoking Status: Unknown if ever smoked alcohol intake: never current occupational status: employed Travel in the last 8 weeks?: None Have you lived/traveled outside US in past 30 days?: No Contact w/someone who lives/traveled outside US past 30 days?: No Exposure to someone with infectious disease in past 14 days?: No Do you have a fever (greater than 100.4 F or 38 C)?: No Have you tested positive for COVID-19?: No Exposed to someone with COVID-19 in past 14 days?: No Do you have a sore throat?: No Do you have a cough?: No Do you have any weakness?: No Do you have any diarrhea?: No Are you experiencing any unusual bleeding?: No Do you have any muscle aches/pain?: No Do you have any abdominal pain?: No Are you experiencing loss of taste or smell?: No <Wilver Le MD - Last Filed: 08/18/25 23:05> ROS Obtained: Yes Systems reviewed as appropriate & no additional complaints except as documented Physical Exam <Wilver Le MD - Last Filed: 08/18/25 23:05> General General appearance: alert and in no apparent distress Head Head exam: atraumatic Eye Eye exam: Present normal appearance ENT ENT exam: Present normal external ear exam Neck Neck exam: Present full ROM Chest Chest inspection: Present symmetric chest wall rise Respiratory Respiratory exam: Present normal lung sounds bilaterally; Absent respiratory distress, wheezes or stridor Cardiovascular Cardiovascular exam: Present regular rate and normal rhythm Abdominal Exam Abdominal exam: Present soft, distention, tenderness, guarding, heel tap sign, Rovsing's sign and tenderness at McBurney's Point; Absent obturator sign Extremities Exam Extremities exam: Present normal inspection Back Exam Back exam: Present normal inspection Neurological Exam Neurological exam: Present alert and oriented X3 Psychiatric Psychiatric exam: Present normal affect Skin Skin exam: Present warm and dry Medical Decision Making <Wilver Le MD - Last Filed: 08/18/25 23:05> Medical Records Screening: Per USPSTF and CDC recommendations, given the prevalence of disease in our region, it is our hospital?s policy to screen for HIV and viral Hepatitis for all patients aged 18 and over and those with ongoing risk factors. Zeferino Inquiry Pt receiving controlled substance: No Vital Signs: 08/18/25 21:37 08/18/25 21:40 08/18/25 21:50 Temperature Temperature Source Pulse Rate 93 H 87 83 Pulse Rate [Left Radial] Respiratory Rate Blood Pressure 110/77 117/68 97/45 L Blood Pressure [Right Arm] Blood Pressure Mean [Right Arm] 02 Sat by Pulse Oximetry 100 100 100 Oxygen Delivery Method 08/18/25 21:51 08/18/25 22:00 08/18/25 22:10 Temperature 98.1 F Temperature Source Oral Pulse Rate 83 67 Pulse Rate [Left Radial] 94 H Respiratory Rate 18 Blood Pressure 104/64 L 88/60 L Blood Pressure [Right Arm] 110/77 Blood Pressure Mean [Right Arm] 88 02 Sat by Pulse Oximetry 100 99 99 Oxygen Delivery Method Room Air 08/18/25 22:20 08/18/25 22:30 08/18/25 22:40 Temperature Temperature Source Pulse Rate 70 71 70 Pulse Rate [Left Radial] Respiratory Rate Blood Pressure 97/62 L 103/64 L 97/56 L Blood Pressure [Right Arm] Blood Pressure Mean [Right Arm] 02 Sat by Pulse Oximetry 100 100 98 Oxygen Delivery Method 08/18/25 22:50 08/18/25 23:00 08/18/25 23:10 Temperature Temperature Source Pulse Rate 69 68 70 Pulse Rate [Left Radial] Respiratory Rate Blood Pressure 93/58 L 92/59 L 89/59 L Blood Pressure [Right Arm] Blood Pressure Mean [Right Arm] 02 Sat by Pulse Oximetry 98 98 98 Oxygen Delivery Method 08/18/25 23:20 08/18/25 23:30 08/18/25 23:32 Temperature Temperature Source Pulse Rate 66 71 69 Pulse Rate [Left Radial] Respiratory Rate Blood Pressure 86/60 L 84/44 L 104/48 L Blood Pressure [Right Arm] Blood Pressure Mean [Right Arm] 02 Sat by Pulse Oximetry 99 99 100 Oxygen Delivery Method 08/18/25 23:40 08/18/25 23:50 08/19/25 00:00 Temperature Temperature Source Pulse Rate 69 72 79 Pulse Rate [Left Radial] Respiratory Rate Blood Pressure 97/59 L 95/64 L 104/55 L Blood Pressure [Right Arm] Blood Pressure Mean [Right Arm] 02 Sat by Pulse Oximetry 100 100 100 Oxygen Delivery Method 08/19/25 00:10 08/19/25 00:20 08/19/25 00:30 Temperature Temperature Source Pulse Rate 75 70 69 Pulse Rate [Left Radial] Respiratory Rate Blood Pressure 115/71 99/66 L 89/45 L Blood Pressure [Right Arm] Blood Pressure Mean [Right Arm] 02 Sat by Pulse Oximetry 99 100 100 Oxygen Delivery Method 08/19/25 01:43 08/19/25 01:45 Temperature Temperature Source Pulse Rate 61 74 Pulse Rate [Left Radial] Respiratory Rate Blood Pressure 85/51 L 95/58 L Blood Pressure [Right Arm] Blood Pressure Mean [Right Arm] 02 Sat by Pulse Oximetry 100 98 Oxygen Delivery Method Lab Data Lab Results 08/18/25 21:32: Urine Color Yellow, Urine Appearance Clear, Urine pH 6.0, Ur Specific [place] 1.020, Urine Protein Negative, Urine Glucose (UA) Negative, Urine Ketones Negative, Urine Blood Negative, Urine Nitrate Negative, Urine Bilirubin Negative, Urine Urobilinogen 0.2, Ur Leukocyte Esterase Negative, Urine RBC Occasional, Ur Squamous Epith Cells 3-5, Urine Bacteria Trace 08/18/25 21:45: WBC 7.5, RBC 4.11 L, Hgb 12.5, Hct 37.0, MCV 90.0, MCH 30.4, MCHC 33.8, RDW 12.1, Plt Count 319, MPV 9.9, Neut % (Auto) 62.8, Lymph % (Auto) 27.2, [place] % (Auto) 7.6, Eos % (Auto) 1.5, Baso % (Auto) 0.8, Neut # (Auto) 4.7, Lymph # (Auto) 2.0, [place] # (Auto) 0.6, Eos # (Auto) 0.1, Baso # (Auto) 0.1, PT 10.9, INR 0.98, APTT 30.6, Sodium 137, Potassium 3.9, Chloride 101, Carbon Dioxide 27, Anion Gap 12.9, BUN 21 H, Creatinine 0.80, Estimated Creat Clear 82, Estimated GFR 83, Est GFR ( Amer) 100, Glucose 73 L, Calcium 9.3, Total Bilirubin 0.4, AST 33, ALT 28, Alkaline Phosphatase 44, C-Reactive Protein TNP, Total Protein 7.3, Albumin 4.6, Globulin 2.7, Albumin/Globulin Ratio 1.7, Lipase 288, Serum HCG, Qual Negative, HCV Ab MAHAMED w/Rflx PCR Qn Cancelled 08/18/25 21:45: HCV Ab MAHAMED w/Rflx PCR Qn Negative, HIV Ag/Ab Combo Qual Negative 08/18/25 21:45 08/18/25 21:45 Orders (Tests/Meds): ED MEDICATIONS Generic Name Dose Route Start Last Admin Trade Name Freq PRN Reason Stop Dose Admin Sodium Chloride 10 ml 08/18/25 22:26 08/18/25 22:27 Sodium Chloride 0.9% 10ml Syr (Rad Only) IV 09/17/25 22:25 10 ml NEEDED PRN Administration Maintain IV Site Discontinued Medications Generic Name Dose Route Start Last Admin Trade Name Freq PRN Reason Stop Dose Admin Lactated Ringer's 1,000 mls @ 999 mls/hr 08/18/25 23:29 08/19/25 00:47 Lactated Ringer's 1000 Ml Bag IV 08/19/25 00:29 Infused .Q1H1M ONE Infusion Iopamidol 75 ml 08/18/25 22:26 08/18/25 22:27 Iopamidol-370 (76%);100ml Bottle IV 08/18/25 22:27 75 ml ONCE ONE Administration Morphine Sulfate 4 mg 08/18/25 21:41 08/18/25 21:49 Morphine 4mg/Ml Syringe IV 08/18/25 21:42 4 mg ONCE ONE Administration ORDERS Category Date Time Status CT abdomen pelvis w con Stat Cat Scan 08/18/25 21:41 Completed US transvaginal Stat Exams 08/19/25 00:33 Completed CBC w/Auto Diff [Complete Blood Count Auto Diff] Stat Lab 08/18/25 21:45 Completed CMP [Comprehensive Metabolic Panel] Stat Lab 08/18/25 21:45 Completed CRP [C-Reactive Protein] Stat Lab 08/18/25 21:45 Completed HIV Combo Stat Lab 08/18/25 21:45 Completed Hepatitis C Ab Qual. W/ RFX Routine Lab 08/18/25 21:45 Completed Lipase Stat Lab 08/18/25 21:45 Completed PT INR [Prothrombin Time INR] Stat Lab 08/18/25 21:45 Completed PTT [Activated Partial Thrombo Time] Stat Lab 08/18/25 21:45 Completed Serum [HCG Qualitative, Serum] Stat Lab 08/18/25 21:45 Completed UA [Urinalysis and Microscopic] Stat Lab 08/18/25 21:32 Completed Medical Decision Narrative: Kalie Wilson is a 35-year-old female with a history of teratoma status post 2 laparoscopic surgeries, most recently 1 year ago who presents to the emergency department for complaints of right lower quadrant abdominal pain. Patient states that she has had intermittent right lower quadrant abdominal pain over the last week to week and a half. She states over the last 2 days, especially today, it has worsened after eating with abdominal bloating and nausea without vomiting. She reports that she has been constipated recently has been taking MiraLAX and is had some hard stools and is unsure if this is related. She denies any fevers but has had cold chills. She denies any chest pain but states that her abdomen feels swollen. She denies any dysuria or hematuria. On arrival, patient is normotensive, borderline tachycardic, afebrile, maintaining appropriate oxygen saturation on room air. Physical exam, as stated above, revealed an uncomfortable appearing female that is nontoxic appearing. Cardiopulmonary exam is unremarkable. Abdomen appears mildly distended and she has generalized tenderness but more focally at McBurney's point with positive Rovsing sign and heeltap sign. Negative obturator sign. Differential diagnosis includes, but is not limited to: Appendicitis, constipation, bowel obstruction, colitis, diverticulitis, acute cholecystitis, acute pancreatitis, urinary tract faction, pyelonephritis, ureterolithiasis, ectopic , among others. The most morbid conditions were considered and workup was based on these. Initial workup in the Emergency Department included: CT abdomen pelvis with IV contrast, CBC with differential, CMP, lipase, CRP, qualitative test, PT/INR, urinalysis. Patient was offered antiemetics, however she declined at this time. Patient had taken ibuprofen prior to arrival. Will administer 4 mg of IV morphine for pain. Per laboratory, analyzer that evaluates CRP is unavailable until Wednesday. No CRP is available at this time. Laboratory studies show no leukocytosis, no anemia, platelets within normal limits. Coagulation studies within normal limits. CMP shows mildly elevated BUN of 21 but no LINDA with creatinine normal at 0.8. Electrolytes within normal limits. Glucose borderline low at 73. Liver enzymes within normal limits. Bilirubin within normal limits. Lipase normal at 288. Pricey test negative. Urinalysis without evidence of infection or blood. Patient's care transferred to oncoming physician, Dr. Fleming, pending final radiology interpretation of patient's CT imaging. On my interpretation at this time, I am unable to appreciate the appendix, however there is a large amount of stool throughout the colon with distended stomach but no evidence of bowel obstruction from my interpretation. There is a possible walled off fluid collection in the posterior lower abdomen. Dr. Fleming will follow-up final radiology interpretation and final disposition. <Geraldine Fleming MD - Last Filed: 08/19/25 02:00> Vital Signs: 08/18/25 21:37 08/18/25 21:40 08/18/25 21:50 Temperature Temperature Source Pulse Rate 93 H 87 83 Pulse Rate [Left Radial] Respiratory Rate Blood Pressure 110/77 117/68 97/45 L Blood Pressure [Right Arm] Blood Pressure Mean [Right Arm] 02 Sat by Pulse Oximetry 100 100 100 Oxygen Delivery Method 08/18/25 21:51 08/18/25 22:00 08/18/25 22:10 Temperature 98.1 F Temperature Source Oral Pulse Rate 83 67 Pulse Rate [Left Radial] 94 H Respiratory Rate 18 Blood Pressure 104/64 L 88/60 L Blood Pressure [Right Arm] 110/77 Blood Pressure Mean [Right Arm] 88 02 Sat by Pulse Oximetry 100 99 99 Oxygen Delivery Method Room Air 08/18/25 22:20 08/18/25 22:30 08/18/25 22:40 Temperature Temperature Source Pulse Rate 70 71 70 Pulse Rate [Left Radial] Respiratory Rate Blood Pressure 97/62 L 103/64 L 97/56 L Blood Pressure [Right Arm] Blood Pressure Mean [Right Arm] 02 Sat by Pulse Oximetry 100 100 98 Oxygen Delivery Method 08/18/25 22:50 08/18/25 23:00 08/18/25 23:10 Temperature Temperature Source Pulse Rate 69 68 70 Pulse Rate [Left Radial] Respiratory Rate Blood Pressure 93/58 L 92/59 L 89/59 L Blood Pressure [Right Arm] Blood Pressure Mean [Right Arm] 02 Sat by Pulse Oximetry 98 98 98 Oxygen Delivery Method 08/18/25 23:20 08/18/25 23:30 08/18/25 23:32 Temperature Temperature Source Pulse Rate 66 71 69 Pulse Rate [Left Radial] Respiratory Rate Blood Pressure 86/60 L 84/44 L 104/48 L Blood Pressure [Right Arm] Blood Pressure Mean [Right Arm] 02 Sat by Pulse Oximetry 99 99 100 Oxygen Delivery Method 08/18/25 23:40 08/18/25 23:50 08/19/25 00:00 Temperature Temperature Source Pulse Rate 69 72 79 Pulse Rate [Left Radial] Respiratory Rate Blood Pressure 97/59 L 95/64 L 104/55 L Blood Pressure [Right Arm] Blood Pressure Mean [Right Arm] 02 Sat by Pulse Oximetry 100 100 100 Oxygen Delivery Method 08/19/25 00:10 08/19/25 00:20 08/19/25 00:30 Temperature Temperature Source Pulse Rate 75 70 69 Pulse Rate [Left Radial] Respiratory Rate Blood Pressure 115/71 99/66 L 89/45 L Blood Pressure [Right Arm] Blood Pressure Mean [Right Arm] 02 Sat by Pulse Oximetry 99 100 100 Oxygen Delivery Method 08/19/25 01:43 08/19/25 01:45 Temperature Temperature Source Pulse Rate 61 74 Pulse Rate [Left Radial] Respiratory Rate Blood Pressure 85/51 L 95/58 L Blood Pressure [Right Arm] Blood Pressure Mean [Right Arm] 02 Sat by Pulse Oximetry 100 98 Oxygen Delivery Method Lab Data Lab Results 08/18/25 21:32: Urine Color Yellow, Urine Appearance Clear, Urine pH 6.0, Ur Specific [place] 1.020, Urine Protein Negative, Urine Glucose (UA) Negative, Urine Ketones Negative, Urine Blood Negative, Urine Nitrate Negative, Urine Bilirubin Negative, Urine Urobilinogen 0.2, Ur Leukocyte Esterase Negative, Urine RBC Occasional, Ur Squamous Epith Cells 3-5, Urine Bacteria Trace 08/18/25 21:45: WBC 7.5, RBC 4.11 L, Hgb 12.5, Hct 37.0, MCV 90.0, MCH 30.4, MCHC 33.8, RDW 12.1, Plt Count 319, MPV 9.9, Neut % (Auto) 62.8, Lymph % (Auto) 27.2, [place] % (Auto) 7.6, Eos % (Auto) 1.5, Baso % (Auto) 0.8, Neut # (Auto) 4.7, Lymph # (Auto) 2.0, [place] # (Auto) 0.6, Eos # (Auto) 0.1, Baso # (Auto) 0.1, PT 10.9, INR 0.98, APTT 30.6, Sodium 137, Potassium 3.9, Chloride 101, Carbon Dioxide 27, Anion Gap 12.9, BUN 21 H, Creatinine 0.80, Estimated Creat Clear 82, Estimated GFR 83, Est GFR ( Amer) 100, Glucose 73 L, Calcium 9.3, Total Bilirubin 0.4, AST 33, ALT 28, Alkaline Phosphatase 44, C-Reactive Protein TNP, Total Protein 7.3, Albumin 4.6, Globulin 2.7, Albumin/Globulin Ratio 1.7, Lipase 288, Serum HCG, Qual Negative, HCV Ab MAHAMED w/Rflx PCR Qn Cancelled 08/18/25 21:45: HCV Ab MAHAMED w/Rflx PCR Qn Negative, HIV Ag/Ab Combo Qual Negative Orders (Tests/Meds): ED MEDICATIONS Generic Name Dose Route Start Last Admin Trade Name Freq PRN Reason Stop Dose Admin Sodium Chloride 10 ml 08/18/25 22:26 08/18/25 22:27 Sodium Chloride 0.9% 10ml Syr (Rad Only) IV 09/17/25 22:25 10 ml NEEDED PRN Administration Maintain IV Site Discontinued Medications Generic Name Dose Route Start Last Admin Trade Name Freq PRN Reason Stop Dose Admin Lactated Ringer's 1,000 mls @ 999 mls/hr 08/18/25 23:29 08/19/25 00:47 Lactated Ringer's 1000 Ml Bag IV 08/19/25 00:29 Infused .Q1H1M ONE Infusion Iopamidol 75 ml 08/18/25 22:26 08/18/25 22:27 Iopamidol-370 (76%);100ml Bottle IV 08/18/25 22:27 75 ml ONCE ONE Administration Morphine Sulfate 4 mg 08/18/25 21:41 08/18/25 21:49 Morphine 4mg/Ml Syringe IV 08/18/25 21:42 4 mg ONCE ONE Administration ORDERS Category Date Time Status CT abdomen pelvis w con Stat Cat Scan 08/18/25 21:41 Completed US transvaginal Stat Exams 08/19/25 00:33 Completed CBC w/Auto Diff [Complete Blood Count Auto Diff] Stat Lab 08/18/25 21:45 Completed CMP [Comprehensive Metabolic Panel] Stat Lab 08/18/25 21:45 Completed CRP [C-Reactive Protein] Stat Lab 08/18/25 21:45 Completed HIV Combo Stat Lab 08/18/25 21:45 Completed Hepatitis C Ab Qual. W/ RFX Routine Lab 08/18/25 21:45 Completed Lipase Stat Lab 08/18/25 21:45 Completed PT INR [Prothrombin Time INR] Stat Lab 08/18/25 21:45 Completed PTT [Activated Partial Thrombo Time] Stat Lab 08/18/25 21:45 Completed Serum [HCG Qualitative, Serum] Stat Lab 08/18/25 21:45 Completed UA [Urinalysis and Microscopic] Stat Lab 08/18/25 21:32 Completed Medical Decision Narrative: Kalie Wilson is a 35-year-old female with a history of teratoma status post 2 laparoscopic surgeries, most recently 1 year ago who presents to the emergency department for complaints of right lower quadrant abdominal pain. Patient states that she has had intermittent right lower quadrant abdominal pain over the last week to week and a half. She states over the last 2 days, especially today, it has worsened after eating with abdominal bloating and nausea without vomiting. She reports that she has been constipated recently has been taking MiraLAX and is had some hard stools and is unsure if this is related. She denies any fevers but has had cold chills. She denies any chest pain but states that her abdomen feels swollen. She denies any dysuria or hematuria. On arrival, patient is normotensive, borderline tachycardic, afebrile, maintaining appropriate oxygen saturation on room air. Physical exam, as stated above, revealed an uncomfortable appearing female that is nontoxic appearing. Cardiopulmonary exam is unremarkable. Abdomen appears mildly distended and she has generalized tenderness but more focally at McBurney's point with positive Rovsing sign and heeltap sign. Negative obturator sign. Differential diagnosis includes, but is not limited to: Appendicitis, constipation, bowel obstruction, colitis, diverticulitis, acute cholecystitis, acute pancreatitis, urinary tract faction, pyelonephritis, ureterolithiasis, ectopic , among others. The most morbid conditions were considered and workup was based on these. Initial workup in the Emergency Department included: CT abdomen pelvis with IV contrast, CBC with differential, CMP, lipase, CRP, qualitative test, PT/INR, urinalysis. Patient was offered antiemetics, however she declined at this time. Patient had taken ibuprofen prior to arrival. Will administer 4 mg of IV morphine for pain. Per laboratory, analyzer that evaluates CRP is unavailable until Wednesday. No CRP is available at this time. Laboratory studies show no leukocytosis, no anemia, platelets within normal limits. Coagulation studies within normal limits. CMP shows mildly elevated BUN of 21 but no LINDA with creatinine normal at 0.8. Electrolytes within normal limits. Glucose borderline low at 73. Liver enzymes within normal limits. Bilirubin within normal limits. Lipase normal at 288. Pricey test negative. Urinalysis without evidence of infection or blood. Patient's care transferred to oncoming physician, Dr. Fleming, pending final radiology interpretation of patient's CT imaging. On my interpretation at this time, I am unable to appreciate the appendix, however there is a large amount of stool throughout the colon with distended stomach but no evidence of bowel obstruction from my interpretation. There is a possible walled off fluid collection in the posterior lower abdomen. Dr. Fleming will follow-up final radiology interpretation and final disposition. Fleming: I assumed care of this patient and agree with the assessment and plan from Dr. Le. At the time of my assumption of care we were awaiting the final radiology read CT. I do appreciate an abnormal appearing fluid collection in the posterior aspect of the pelvis that appears to have some adjacent enhancement. Radiology read did not specifically comment on this so I reached out to the reading radiologist to states he believes this is evidence of a ruptured corpus luteum cyst. With patient's history of seroma and other post procedural complications I believe this requires further investigation and he recommended transvaginal ultrasound for further evaluation. She has also been hypotensive in the 80s so with concern for ruptured bleeding systemically requires further evaluation. She is also receiving IV fluids for the hypotension and having positive response to them at this time. I appreciate the radiologist's thoughts and recommendations. Transvaginal ultrasound has been ordered. Notably, patient also does have significant stool burden on her CT abdomen pelvis, she reports she has been taking stool softeners and laxatives for multiple weeks with minimal outcome and is pretty miserable with abdominal discomfort. I discussed at home bowel cleanout with her but she has indicated she would prefer to be admitted since she has not been successful with home bowel cleanout so far. This will likely be reasonable following her transvaginal ultrasound. Transvaginal ultrasound does not demonstrate significant pelvic free fluid, few cysts are present no evidence of torsion. Patient appropriate for admission at this time. I discussed this case with the hospitalist including patient's multiple attempts for bowel cleanout at home unsuccessfully and her continued abdominal discomfort. He graciously accepted the patient for admission. Patient admitted in stable condition. Critical Care <Wilver Le MD - Last Filed: 08/18/25 23:05> Critical Care Time Critical Care Time: No
[2025-08-18] MEDS: MORPHINE 4MG/ML SYRINGE 4 MG IV (21:49)
[2025-08-18 21:56] LABS: Microscopic, Urine URINE MICROSCOPIC (MICROSCOPIC)
[2025-08-18 21:57] LABS: Bilirubin,Urine Negative (Negative); Color,Urine YELLOW (Yellow); Glucose,Urine (UA) Negative (Negative); Ketones,Urine Negative (Negative); Leukocyte Esterase,Urine Negative (Negative); PH,Urine 6.0 (5.0-8.5); Protein,Urine Negative (Negative); Specific Gravity, Urine 1.020 (1.005-1.030); Urobilinogen,Urine 0.2 EU/dl (0.2)
[2025-08-18 21:58] LABS: Hematocrit 37.0 % (37.0-47.0); Hemoglobin 12.5 g/dL (12.2-16.2); Immature Granulocytes % 0.1 %; Mean Corpuscular HGB Conc 33.8 g/dL (31.8-35.4); Mean Corpuscular Hemoglobin 30.4 pg (27.0-31.2); Mean Corpuscular Volume 90.0 fl (81-99); Nucleated Red Blood Cells % 0 %; Platelet Count 319 K/mm3 (142-424); Red Blood Count 4.11 M/mm3 (4.20-5.40); Red Cell Distribution Width-SD 39.8 fL; White Blood Count 7.5 K/mm3 (4.8-10.8)
[2025-08-18 22:07] LABS: Activated Partial Thrombo Time 30.6 seconds (22.8-30.6); INR 0.98 (0.9-1.1); Prothrombin Time 10.9 seconds (10.1-12.5)
[2025-08-18 22:08] LABS: Albumin Level 4.6 g/dl (3.5-5.0); Chloride 101 mmol/L (98-107)
[2025-08-18 22:09] LABS: Potassium 3.9 mmoL/L (3.5-5.1); Sodium 137 mmol/L (136-145)
[2025-08-18 22:11] LABS: Alanine Aminotransferase 28 U/L (12-78); Alkaline Phosphatase 44 U/L (38-126); Anion Gap 12.9 mEq/L (5-15); Aspartate Amino Transferase 33 U/L (14-36); Bilirubin,Total 0.4 mg/dl (0.2-1.3); Blood Urea Nitrogen 21 mg/dl (7-17); Carbon Dioxide 27 mmol/L (22.0-30.0); Creatinine Clearance Estimated 82 mL/min (50-200); Creatinine,Serum 0.80 mg/dl (0.52-1.04); Estimated Glomerular Filt Rate 83 ml/min (>60); GFR (African American) 100 ML/MIN (>60); HCG Qualitative, Serum Negative (Negative)
[2025-08-18 22:12] LABS: Albumin/Globulin Ratio 1.7 (1.1-1.8); Calcium 9.3 mg/dl (8.4-10.2); Globulin 2.7 g/dL (1.3-3.2); Glucose 73 mg/dl (74-100); Lipase 288 U/L (23-300); Total Protein,Serum 7.3 g/dl (6.3-8.2)
[2025-08-18 22:25] LABS: Bacteria,Urine Trace /lpf; RBC,Urine Occasional #/hpf (0-3)
[2025-08-18] MEDS: SODIUM CHLORIDE 0.9% 10ML SYR (RAD ONLY) 10 ML IV (22:27)
[2025-08-18] MEDS: IOPAMIDOL-370 (76%);100ML BOTTLE 75 ML IV (22:27)
[2025-08-18] MEDS: LACTATED RINGERS 1000ML 1,000 ML 999 ML IV (23:35)
--- NOTE | 2025-08-18 23:40 | PC.NURSE ---
Dr Fleming s/w [facility] reading radiologist for read confirmation
--- NOTE | 2025-08-18 23:55 | PC.NURSE ---
Dr Fleming would like to call in on-call [facility]. radiology notified
[2025-08-19] VITALS (11 sets, daily range): BP systolic 85–115; BP diastolic 45–71; PULSE 60–79; RESP 14–16; TEMP 36.6–36.9; O2SAT 98–100
[2025-08-19 00:17] LABS: Hepatitis C Ab Qual. W/ RFX NEGATIVE (Negative)
--- NOTE | 2025-08-19 00:33 | US_ITS ---
PROCEDURE INFORMATION: Exam: US Pelvis, Transvaginal, Non-Obstetric Exam date and time: 08/19/2025 12:31 AM Age: 35 years old Clinical indication: Abdominal pain and pelvic pain; Right lower quadrant; Prior surgery; Surgery date: 6+ months; Surgery type: RT oophorectomy; Additional info: ? Ruptured cyst with surrounding enhancement TECHNIQUE: Imaging protocol: Real-time transvaginal pelvic (non-obstetric) ultrasound with image documentation. Transvaginal imaging was used for better evaluation of the endometrium, adnexa, and/or cervix. COMPARISON: CT ABDOMEN PELVIS W CON 08/18/2025 10:24 PM FINDINGS: Uterus: Uterus is unremarkable measuring 8.7 x 4.8 x 5.7 cm. Endometrial stripe is unremarkable measuring 1.3 cm. Right ovary/adnexa: Surgically absent. Left ovary/adnexa: Measures 3.9 x 1.7 x 1.6 cm with 1.6 x 1.5 x 1.7 cm corpus luteal cyst. No mass. Normal ovarian blood flow on color Doppler. Urinary bladder: Urinary bladder is limited. Intraperitoneal space: No free fluid. IMPRESSION: Physiologic, small left ovarian corpus luteal cyst with surrounding normal ovarian tissue accounting for hypoattenuating tissue surrounding cyst are seen on CT scan. No significant free fluid or suspicious findings identified.
--- NOTE | 2025-08-19 00:47 | PC.NURSE ---
pt to u/s via wheelchair
--- NOTE | 2025-08-19 02:20 | EXP.HP ---
History of Present Illness *Admission Date: 08/19/25 *Reason for visit:: Abdominal pain *History of present illness: Patient is a 35-year-old female with past medical history of multiple abdominal surgeries due to teratoma who presented to hospital due to complaints of right lower abdominal pain. According to the patient she has been constipated for about a week, she has been using MiraLAX at home without much relief, she also has nausea, intermittent abdominal pain which has been getting worse. On further evaluation in the emergency department patient was noted to have large colonic stool burden. [facility] Disclaimer: The information contained in this section may have been updated after the patient was seen, as this information can be updated by other users. Medical History (Updated 08/18/25 @ 22:52 by Wilver Le MD) Hyperthyroidism Surgical History (Updated 05/19/24 @ 10:03 by USMAN Taylor) H/O tubal ligation H/O oophorectomy Social History (Updated 08/19/25 @ 03:08 by Patience Moore RN) Smoking Status: Unknown if ever smoked alcohol intake: never current occupational status: employed Travel in the last 8 weeks?: None Have you lived/traveled outside US in past 30 days?: No Contact w/someone who lives/traveled outside US past 30 days?: No Exposure to someone with infectious disease in past 14 days?: No Do you have a fever (greater than 100.4 F or 38 C)?: No Have you tested positive for COVID-19?: No Exposed to someone with COVID-19 in past 14 days?: No Do you have a sore throat?: No Do you have a cough?: No Do you have any weakness?: No Are you experiencing any nausea/vomitting?: No Do you have any diarrhea?: No Are you experiencing any unusual bleeding?: No Do you have any muscle aches/pain?: No Do you have any abdominal pain?: No Are you experiencing loss of taste or smell?: No Review of Systems Review of Systems Review of systems:: pertinent systems reviewed and negative unless documented below Meds Home Medications and Allergies Home Medications ?Medication ?Instructions ?Recorded ?Confirmed ?Type levothyroxine 25 mcg tablet 25 mcg PO DAILY 08/19/25 08/19/25 History New Prescriptions to Start Prescriptions: Allergies Allergy/AdvReac Type Severity Reaction Status Date / Time sulfamethoxazole (From Allergy Unknown Verified 05/19/24 09:53 BACTRIM) trimethoprim (From BACTRIM) Allergy Unknown Verified 05/19/24 09:53 Exam Data for Last 24 hours Vital signs and Labs for Last 24 Hours: Temp Pulse Resp BP Pulse Ox O2 Del Method 98.1 F 74 18 95/58 L 98 Room Air 08/18/25 21:51 08/19/25 01:45 08/18/25 21:51 08/19/25 01:45 08/19/25 01:45 08/18/25 21:51 Laboratory Results - last 24 hr 08/18/25 21:32: Urine Color Yellow, Urine Appearance Clear, Urine pH 6.0, Ur Specific [place] 1.020, Urine Protein Negative, Urine Glucose (UA) Negative, Urine Ketones Negative, Urine Blood Negative, Urine Nitrate Negative, Urine Bilirubin Negative, Urine Urobilinogen 0.2, Ur Leukocyte Esterase Negative, Urine RBC Occasional, Ur Squamous Epith Cells 3-5, Urine Bacteria Trace 08/18/25 21:45: WBC 7.5, RBC 4.11 L, Hgb 12.5, Hct 37.0, MCV 90.0, MCH 30.4, MCHC 33.8, RDW 12.1, Plt Count 319, MPV 9.9, Neut % (Auto) 62.8, Lymph % (Auto) 27.2, [place] % (Auto) 7.6, Eos % (Auto) 1.5, Baso % (Auto) 0.8, Neut # (Auto) 4.7, Lymph # (Auto) 2.0, [place] # (Auto) 0.6, Eos # (Auto) 0.1, Baso # (Auto) 0.1, PT 10.9, INR 0.98, APTT 30.6, Sodium 137, Potassium 3.9, Chloride 101, Carbon Dioxide 27, Anion Gap 12.9, BUN 21 H, Creatinine 0.80, Estimated Creat Clear 82, Estimated GFR 83, Est GFR ( Amer) 100, Glucose 73 L, Calcium 9.3, Total Bilirubin 0.4, AST 33, ALT 28, Alkaline Phosphatase 44, C-Reactive Protein TNP, Total Protein 7.3, Albumin 4.6, Globulin 2.7, Albumin/Globulin Ratio 1.7, Lipase 288, Serum HCG, Qual Negative, HCV Ab MAHAMED w/Rflx PCR Qn Cancelled 08/18/25 21:45: HCV Ab MAHAMED w/Rflx PCR Qn Negative, HIV Ag/Ab Combo Qual Negative I & O for Last 24 hours: Intake & Output 08/16/25 08/17/25 08/18/25 08/19/25 23:59 23:59 23:59 23:59 Intake Total 1000 / 1000 Balance 1000 / 1000 Weight 52.163 kg Constitutional Constitutional: no acute distress *Routine HEENT Exam Head: Present normocephalic Eye: Present EOMI and PERRL ENT: Present mucous membranes moist *Routine Neck Exam Neck: Present supple; Absent lymphadenopathy *Routine Respiratory Exam Respiratory: Present CTA bilaterally *Routine Cardiovascular Exam Cardiovascular: Present RRR *Routine Abdominal Exam Abdominal: Present soft, normoactive bowel sounds and tenderness *Routine Rectal Exam Rectal:: deferred *Routine Genitalia Exam Genitalia:: deferred *Routine Extremities Exam Extremities: Absent cyanosis, clubbing or edema *Routine Skin Exam Skin: Present warm; Absent rash *Routine Neurological Exam Neurological: Present alert and oriented X3 Assessment and Plan *Assessment and plan (1) Constipation: Status: Acute Category: Medical Code(s): K59.00 - Constipation, unspecified (2) Abdominal pain: Status: Acute Category: Medical Code(s): R10.9 - Unspecified abdominal pain (3) Nausea & vomiting: Status: Acute Qualifiers: Vomiting type: unspecified Qualified Code(s): R11.2 - Nausea with vomiting, unspecified Category: Medical Code(s): R11.2 - Nausea with vomiting, unspecified Plan Patient is a 35-year-old female with past medical history of multiple abdominal surgeries due to teratoma who presented to hospital due to complaints of right lower abdominal pain. According to the patient she has been constipated for about a week, she has been using MiraLAX at home without much relief, she also has nausea, intermittent abdominal pain which has been getting worse. On further evaluation in the emergency department patient was noted to have large colonic stool burden. Assessment and plan Abdominal pain suspect due to severe constipation lactulose, dulcolax suppositroy once Consult GI for possible disimpaction with colonoscopy CT abdomen pelvis positive for large colonic stool burden Start IV fluids, advance diet as tolerated, n.p.o. for now UA checked-negative for infectious etiology DVT prophylaxis-subcutaneous heparin
[2025-08-19] MEDS: 0.9 % SODIUM CHLORIDE 1000ML 1,000 ML 75 ML IV (02:43)
[2025-08-19] MEDS: BISACODYL 10MG SUPP 10 MG RC (04:46)
--- NOTE | 2025-08-19 06:12 | HMH.PHAINT ---
MEDICATION RECONCILIATION COMPLETED ON PATIENT USING EXTERNAL FILL HISTORY FROM PHARMACY. -KAROLYN CLEMENT, BELINDAD
[2025-08-19 07:56] LABS: Chloride 106 mmol/L (98-107); Potassium 4.0 mmoL/L (3.5-5.1); Sodium 138 mmol/L (136-145)
[2025-08-19 07:59] LABS: Anion Gap 10.0 mEq/L (5-15); Blood Urea Nitrogen 16 mg/dl (7-17); Calcium 8.8 mg/dl (8.4-10.2); Carbon Dioxide 26 mmol/L (22.0-30.0); Creatinine Clearance Estimated 96 mL/min (50-200); Creatinine,Serum 0.70 mg/dl (0.52-1.04); Estimated Glomerular Filt Rate 96 ml/min (>60); GFR (African American) 117 ML/MIN (>60); Glucose 87 mg/dl (74-100)
[2025-08-19] MEDS: MINERAL OIL ENEMA 133ML 133 ML RC (08:39)
[2025-08-19] MEDS: MAGNESIUM CITRATE 296ML BOTTLE 296 ML PO (09:52)
--- NOTE | 2025-08-19 16:42 | P.DS_ITS ---
General Admission date:: 08/19/25 Discharge date: 08/19/25 HPI HPI HPI: Patient is a 35-year-old female with past medical history of multiple abdominal surgeries due to teratoma who presented to hospital due to complaints of right lower abdominal pain. According to the patient she has been constipated for about a week, she has been using MiraLAX at home without much relief, she also has nausea, intermittent abdominal pain which has been getting worse. On further evaluation in the emergency department patient was noted to have large colonic stool burden. Hospital Course Hospital Course Hospital Course: Patient is a 35-year-old female with past medical history of multiple abdominal surgeries due to teratoma who presented to hospital due to complaints of right lower abdominal pain. According to the patient she has been constipated for about a week, she has been using MiraLAX at home without much relief, she also has nausea, intermittent abdominal pain which has been getting worse. On further evaluation in the emergency department patient was noted to have large colonic stool burden. Treated aggressively with stool softeners including MiraLAX, docusate senna, mag citrate. Received 1 mineral oil enema. Had 4 bowel movements changing in consistency from hard pellety stools to liquid stool. Patient feeling much better. Nausea resolved. Stated she felt comfortable going home and would like to continue treatment in the home setting for her bowel issue. Belly soft. In the setting of her multiple bowel movements and feeling better in light of tolerance of p.o. intake, deemed stable to discharge home with further management as an outpatient. Initiate docusate senna twice daily for goal of 1-2 soft stools a day. Encouraged adequate oral hydration and high-fiber diet. Follow-up with PCP in the next week for reevaluation. Exam Data for Last 24 hours Vital signs and Labs for Last 24 Hours: Temp Pulse Resp BP Pulse Ox O2 Del Method 98.0 F 69 14 105/63 L 100 Room Air 08/19/25 16:00 08/19/25 16:00 08/19/25 16:00 08/19/25 16:00 08/19/25 16:00 08/19/25 16:00 Laboratory Results - last 24 hr 08/18/25 21:32: Urine Color Yellow, Urine Appearance Clear, Urine pH 6.0, Ur Specific [place] 1.020, Urine Protein Negative, Urine Glucose (UA) Negative, Urine Ketones Negative, Urine Blood Negative, Urine Nitrate Negative, Urine Bilirubin Negative, Urine Urobilinogen 0.2, Ur Leukocyte Esterase Negative, Urine RBC Occasional, Ur Squamous Epith Cells 3-5, Urine Bacteria Trace 08/18/25 21:45: WBC 7.5, RBC 4.11 L, Hgb 12.5, Hct 37.0, MCV 90.0, MCH 30.4, MCHC 33.8, RDW 12.1, Plt Count 319, MPV 9.9, Neut % (Auto) 62.8, Lymph % (Auto) 27.2, [place] % (Auto) 7.6, Eos % (Auto) 1.5, Baso % (Auto) 0.8, Neut # (Auto) 4.7, Lymph # (Auto) 2.0, [place] # (Auto) 0.6, Eos # (Auto) 0.1, Baso # (Auto) 0.1, PT 10.9, INR 0.98, APTT 30.6, Sodium 137, Potassium 3.9, Chloride 101, Carbon Dioxide 27, Anion Gap 12.9, BUN 21 H, Creatinine 0.80, Estimated Creat Clear 82, Estimated GFR 83, Est GFR ( Amer) 100, Glucose 73 L, Calcium 9.3, Total Bilirubin 0.4, AST 33, ALT 28, Alkaline Phosphatase 44, C-Reactive Protein TNP, Total Protein 7.3, Albumin 4.6, Globulin 2.7, Albumin/Globulin Ratio 1.7, Lipase 288, Serum HCG, Qual Negative, HCV Ab MAHAMED w/Rflx PCR Qn Cancelled 08/18/25 21:45: HCV Ab MAHAMED w/Rflx PCR Qn Negative, HIV Ag/Ab Combo Qual Negative 08/19/25 07:31: Sodium 138, Potassium 4.0, Chloride 106, Carbon Dioxide 26, Anion Gap 10.0, BUN 16, Creatinine 0.70, Estimated Creat Clear 96, Estimated GFR 96, Est GFR ( Amer) 117, Glucose 87, Calcium 8.8 I & O for Last 24 hours: Intake & Output 08/16/25 08/17/25 08/18/25 08/19/25 23:59 23:59 23:59 23:59 Intake Total 1965 / 1965 Output Total 1600 / 1600 Balance 365 / 365 Weight 52.163 kg 53.07 kg Constitutional Constitutional: no acute distress, thin and cooperative *Routine HEENT Exam Head: Present normocephalic Eye: Present EOMI and PERRL ENT: Present mucous membranes moist *Routine Neck Exam Neck: Present supple; Absent lymphadenopathy *Routine Respiratory Exam Respiratory: Present CTA bilaterally; Absent rhonchi, wheezes or crackles *Routine Cardiovascular Exam Cardiovascular: Present RRR *Routine Abdominal Exam Abdominal: Present soft and normoactive bowel sounds; Absent tenderness *Routine Rectal Exam Patient deferred: visual exam *Routine Exam Patient deferred: external exam *Routine Extremities Exam Extremities: Absent cyanosis, clubbing or edema *Routine Skin Exam Skin: Present intact and warm; Absent rash *Routine Neurological Exam Neurological: Present alert, oriented X3 and moving all extremities; Absent altered mental status Results Data Completed and Pending Labs on day of discharge: Labs from last 24 hours 08/19/25 08/18/25 08/18/25 07:31 21:45 21:45 WBC 7.5 RBC 4.11 L Hgb 12.5 Hct 37.0 MCV 90.0 MCH 30.4 MCHC 33.8 RDW 12.1 Plt Count 319 MPV 9.9 Neut % (Auto) 62.8 Lymph % (Auto) 27.2 [place] % (Auto) 7.6 Eos % (Auto) 1.5 Baso % (Auto) 0.8 Neut # (Auto) 4.7 Lymph # (Auto) 2.0 [place] # (Auto) 0.6 Eos # (Auto) 0.1 Baso # (Auto) 0.1 PT 10.9 INR 0.98 APTT 30.6 Sodium 138 137 Potassium 4.0 3.9 Chloride 106 101 Carbon Dioxide 26 27 Anion Gap 10.0 12.9 BUN 16 21 H Creatinine 0.70 0.80 Estimated Creat Clear 96 82 Estimated GFR 96 83 Est GFR ( Amer) 117 100 Glucose 87 73 L Calcium 8.8 9.3 Total Bilirubin 0.4 AST 33 ALT 28 Alkaline Phosphatase 44 C-Reactive Protein TNP Total Protein 7.3 Albumin 4.6 Globulin 2.7 Albumin/Globulin Ratio 1.7 Lipase 288 Serum HCG, Qual Negative Urine Color Urine Appearance Urine pH Ur Specific [place] Urine Protein Urine Glucose (UA) Urine Ketones Urine Blood Urine Nitrate Urine Bilirubin Urine Urobilinogen Ur Leukocyte Esterase Urine RBC Ur Squamous Epith Cells Urine Bacteria HCV Ab MAHAMED w/Rflx PCR Qn Negative Cancelled HIV Ag/Ab Combo Qual Negative 08/18/25 21:32 WBC RBC Hgb Hct MCV MCH MCHC RDW Plt Count MPV Neut % (Auto) Lymph % (Auto) [place] % (Auto) Eos % (Auto) Baso % (Auto) Neut # (Auto) Lymph # (Auto) [place] # (Auto) Eos # (Auto) Baso # (Auto) PT INR APTT Sodium Potassium Chloride Carbon Dioxide Anion Gap BUN Creatinine Estimated Creat Clear Estimated GFR Est GFR ( Amer) Glucose Calcium Total Bilirubin AST ALT Alkaline Phosphatase C-Reactive Protein Total Protein Albumin Globulin Albumin/Globulin Ratio Lipase Serum HCG, Qual Urine Color Yellow Urine Appearance Clear Urine pH 6.0 Ur Specific [place] 1.020 Urine Protein Negative Urine Glucose (UA) Negative Urine Ketones Negative Urine Blood Negative Urine Nitrate Negative Urine Bilirubin Negative Urine Urobilinogen 0.2 Ur Leukocyte Esterase Negative Urine RBC Occasional Ur Squamous Epith Cells 3-5 Urine Bacteria Trace HCV Ab MAHAMED w/Rflx PCR Qn HIV Ag/Ab Combo Qual DS: Diagnosis Discharge Diagnosis (1) Constipation: Status: Acute Code(s): K59.00 - Constipation, unspecified (2) Abdominal pain: Status: Acute Code(s): R10.9 - Unspecified abdominal pain (3) Nausea & vomiting: Status: Acute Code(s): R11.2 - Nausea with vomiting, unspecified Qualifiers: Vomiting type: unspecified Qualified Code(s): R11.2 - Nausea with vomiting, unspecified Meds Home Medications and Allergies Home Medications ?Medication ?Instructions ?Recorded ?Confirmed ?Type levothyroxine 25 mcg tablet 25 mcg PO DAILY 08/19/25 0 08/19/25 History sennosides 8.6 mg-docusate sodium 1 tab-cap PO BID PRN constipation 08/19/25 Rx 50 mg tablet (Senna Plus) #60 tabs New Prescriptions to Start Prescriptions: sennosides-docusate sodium [Senna Plus] Anish Slater Allergies Allergy/AdvReac Type Severity Reaction Status Date / Time sulfamethoxazole (From Allergy Unknown Verified 05/19/24 09:53 BACTRIM) trimethoprim (From BACTRIM) Allergy Unknown Verified 05/19/24 09:53 Discharge Plan Disposition Patient Disposition: Home, Self-Care Condition: Fair Follow up Plan Follow up with: Provider,ReferralMD [Primary Care Provider, Medical] - Enter time for follow up Prescriptions/Medication Reconciliation: New sennosides-docusate sodium [Senna Plus] 8.6-50 mg tablet 1 tab-cap PO BID PRN (Reason: constipation) Qty: 60 0RF Continued levothyroxine 25 mcg tablet 25 mcg PO DAILY Patient Comments: TAKE 1 TABLET BY MOUTH ONCE DAILY Problem Reconciliation Problems Reviewed?: Yes Patient Discharge Instructions ACTIVITY: Continue current activity DIET: continue same diet and advance to your usual diet Stand Alone Forms: [facility] Work Release Patient Instructions: DI for Constipation Print Language: Tunisian Providers Primary Care Provider: Provider,Referral Admit Provider: Anish Slater Attending Provider: Anish Slater
--- NOTE | 2025-08-21 10:51 | SW/DCPLANNER ---
Phoned patient x2. Left message with name and a call back number. Rose baldwin
== END 2025-08-19 17:30 | disposition home or self-care (01) ==
LOC: ER 08-19 01:56 → 2ND 08-19 02:03
PROVIDERS: Internal Medicine; Admitting Provider Internal Medicine Adolescent Medicine; Emergency Provider Student in an Organized Health Care Education/Training Program; Visit Provider Internal Medicine Adolescent Medicine
DX: K59.00 Constipation, unspecified (principal); R11.2 Nausea with vomiting, unspecified; Z88.2 Allergy status to sulfonamides; Z88.1 Allergy status to other antibiotic agents
CPT/HCPCS: 36415; 74177; 76830; 80048; 80053; 81001; 83690; 84703; 85025; 85610; 85730; 86803; 87389; 96361; 96374; 99285; G0378; J2270; J7030; J7120; Q9967

== ENCOUNTER 2025-11-11 15:25 | Emergency (ER) | payer MEDICAID, SELFPAY ==
[2025-11-11 15:30] VITALS: BP 117/63; PULSE 87; RESP 16; TEMP 37.2; O2SAT 99; BMI 22.8
--- OUTSIDE RECORDS SUMMARY | 2025-11-11 16:00 | XMS_ITS | Clinical Summary ---
Author Organization [facility] Address [address] [place] [address] Phone Care Team Providers Care Tungsten Refiner Name Role Phone Ezra Quinones MD Primary Care Physician [phone] Conditions or Problems Problem Name Problem Code Onset Date Status Entry Date Provider Comment Standard Description Annotate Counseling for nutrition Z71.3 (ICD-10-CM ) Inactive Carito FRANCISCOW Dietary counseling and surveillance Counseling for nutrition Z71.3 (ICD-10-CM ) Inactive Carito FRANCISCOW Dietary counseling and surveillance Body mass index (BMI) 19 or less; adult Z68.1 (ICD-10-CM ) Active Ezra Quinones MD Body mass index [BMI] 19.9 or less, adult Body mass index (BMI) 19 or less; adult Z68.1 (ICD-10-CM ) 08/11 Correction 08/12 Ezra Quinones MD Body mass index [BMI] 19.9 or less, adult Body mass index (BMI) 19 or less; adult Z68.1 (ICD-10-CM ) 08/11 Removed 08/12 Ezra Quinones MD Body mass index [BMI] 19.9 or less, adult Body mass index (BMI) 19 or less; adult Z68.1 (ICD-10-CM ) 07/27 Correction 07/27 Ezra Quinones MD Body mass index [BMI] 19.9 or less, adult Body mass index (BMI) 19 or less; adult Z68.1 (ICD-10-CM ) 07/27 Removed 07/27 Ezra Quinones MD Body mass index [BMI] 19.9 or less, adult PTSD [id number] (SNOMED CT) 07/27 Active 07/27 Ezra Quinones MD Post-traumati c stress disorder Major depression, recurrent, moderate [id number] (SNOMED CT) 07/27 Active 07/27 Ezra Quinones MD Moderate recurrent major depression Generalized anxiety disorder 65786382 (SNOMED CT) 07/27 Active 07/27 Ezra Quinones MD Generalized anxiety disorder PANIC DISORDER [id number] (SNOMED CT) 07/27 Active 07/27 Ezra Quinones MD Panic disorder Medications Medication Instructions Start Date Stop Date Generic Name NDC Provider KLONOPIN 0.5 MG TABS Take 1 tablet by mouth twice a day for anxiety 3 clonazepam [id number] Ezra Quinones MD LEXAPRO 10 MG TABS Take 1/2 tablet by mouth once a day for 2 weeks, then take 1 tablet daily. stop cymbalta. 3 escitalopram oxalate 17857157331 Ezra Quinones MD KLONOPIN 0.5 MG TABS Take 1 tablet by mouth twice a day as needed for anxiety 9 clonazepam [id number] Ezra Quinones MD WELLBUTRIN SR 100 MG [id number] Take 1 tablet by mouth every morning stop lexapro. 9 bupropion hcl [id number] Ezra Quinones MD LEXAPRO 10 MG TABS Take 1/2 tablet by mouth once a day for 2 weeks, then take 1 tablet daily. 3 escitalopram oxalate 34223486298 Ezra Quinones MD LEXAPRO 10 MG TABS Take 1/2 tablet by mouth once a day for 2 weeks, then take 1 tablet daily. stop cymbalta. 3 escitalopram oxalate 51244433400 Ezra Quinones MD KLONOPIN 0.5 MG TABS Take 1/2 tablet by mouth twice a day for anxiety 9 clonazepam 52525283434 Ezra Quinones MD Cymbalta 20 mg capsule,delaye d release(/EC) Take 1 capsule by mouth once a day 9 duloxetine 50905379339 Ezra Quinones MD KLONOPIN 0.5 MG TABS Take 1 tablet by mouth twice a day for anxiety 3 clonazepam 11080693071 Ezra Quinones MD LEXAPRO 10 MG TABS Take 1/2 tablet by mouth once a day for 2 weeks, then take 1 tablet daily. 3 escitalopram oxalate 66349703255 Ezra Quinones MD Cymbalta 20 mg capsule,delaye d release(/EC) Take 1 capsule by mouth once a day 9 duloxetine [id number] Ezra Quinones MD KLONOPIN 0.5 MG TABS Take 1/2 tablet by mouth twice a day for anxiety 9 clonazepam 29275286744 Ezra Quinones MD Medications Administered No information available. Allergies, Adverse Reactions, Alerts Observed no known allergies at Results Date Name Value Unit Range Flag Description Lab Report: DRUG MONITOR, ROSEMARY SATHYA 1, W/CONF, URINE, PRESCRIBED DRUGS, medM ... MORPHINE UR 139 <50 H morphine drug screen, urine HYDROMORPHON NEGATIVE <50 N hydromo rphone drug screen, urine HYDROC UR NEGATIVE <50 N hydrocodon e screen, urine CODEINE UR NEGATIVE <50 N codeine d rug screen, urine PHENCYCLIDIN NEGATIVE ng/mL <25 N Phencyc lidine [Presence] in Urine OXYCODONE NEGATIVE <100 N Oxycodone urine screening METHADONEURN NEGATIVE <100 N Methado ne [Presence] in Urine by Screen method MARIJUANAURN NEGATIVE <20 N Marijua na, cannabinoid screen Urine COCAINE UR NEGATIVE <150 N cocaine, urine BENZODIAZ UR NEGATIVE <100 N Benzodi azepines [Presence] in Urine AMPHETAMI UR NEGATIVE <500 N Ampheta mines [Presence] in Urine Plan of Care No information available. Procedures Code Procedure Name Date Entry Date CPT-1159F Medication list docu mented in medical record CPT-42789() Psych Dx Eval No E&M Medical Serv() 20 20/09/25 [id number] Former smoker [id number] Medication Reconciliation [facility] G4288 T2 Drug Screen-Urine w/ Confirmation 2022 CPT-3074F Most recent systolic blood pressure <130 mm Hg CPT-3078F Most recent diastoli c blood pressure <80 mm Hg [id number] Medication Reconciliation CPT-3074F Most recent systolic blood pressure <130 mm Hg CPT-3078F Most recent diastoli c blood pressure <80 mm Hg [id number] Medication Reconciliation [facility] G4288 T2 Drug Screen-Urine w/ Confirmation 2022 CPT-3074F Most recent systolic blood pressure <130 mm Hg CPT-3078F Most recent diastoli c blood pressure <80 mm Hg Vital Signs Date Name Value Unit Description BMI (Body Mass Index) 17.26 kg/m2 Bod y Mass Index (Ratio) BP Diastolic 76 mm[Hg] blood pressu re, diastolic BP Systolic 118 mm[Hg] blood pressur e, systolic BSA (Body Surface Area) 1.43 b iveth surface area Heart Rate 87 /min pulse rate Height 64 [in_us] height E&M Height 162.56 cm height in cent imeters E&M Weight Measured 45.55 kg weight in kilograms E&M Weight Measured 100.2 [lb_av] weight E& M Weight Measured 100.2 [lb_av] weight E& M Immunizations No information available. Advance Directives No information available.
--- OUTSIDE RECORDS SUMMARY | 2025-11-11 16:01 | XMS_ITS | Encounter Summary ---
Author Organization [facility] Address [facility] [place] [address] Phone Care Team Providers Care Exhibition Specialist Name Role Phone Pcp, Pending Only Primary Care Provider [phone] Pcp, None Primary Care Provider [phone] Encounter Details Date Type Department Care Team (Late st Contact Info) Description 07/04/2015 [facility] [address] [place] [address] [id number] Lula Cruz Registered Nurse Social History Tobacco [...] on filedocumented in this encounter Care Teams Exhibition Specialist Relationship Specialty Start Date End Date Pcp, Pending Only, [place], [place] [id number] PCP - General Internal Medicine 06/19/15 07/14/16 Pcp, None, [place] [address] PCP - General Internal Medicine 07/15/16 documented as of this encounter
--- OUTSIDE RECORDS SUMMARY | 2025-11-11 16:01 | XMS_ITS | Encounter Summary ---
Author Organization [place] [address] Care Team Providers Care Limousine And Hearse Upholsterer Name Role Phone Steffanie Hickey MD Unavailable [phone] Fariha MICHEL MD, Luis Alfredo Bajwa Primary Care P rovider Harish Bonner MD Unavailable [phone] Encounter Details Date Type Department Care Team (Latest Contact Info) Description 09/17/2025 Results Follow-Up [facility] Diabetes [facility] [address] [facility] [address] [place] [address] Steffanie Hickey MD [address] [place] [address] COMPREHENSIVE METABOLIC PANEL, THYROID STIMULATING HORMONE, CORTISOL, Additional followed-up results: 2 Social History Tobacco Use Types Packs/Day Years Used Date Smoking Tobacco: Some Days Cigarettes Last attempted to quit: 06/29/2016 Smokeless Tobacco: Current Alcohol Use Standard Drinks/Week Comments No 0 (1 standard drink = 0.6 oz pur e alcohol) Sexually Active Control Partners Comments Not Currently Abstinence Male Comments No Sex and Gender Information Value Date Recorded Sex Assigned at Not on file Legal Sex Female 9:37 PM EDT Gender Identity Not on file Sexual Orientation Not on file documented as of this encounter Functional Status * Is the person deaf or does he/she have serious difficulty hearing? Answer Date of Assessment Author No 02/07/2021 4:55 PM Villa Bernal RN * Is the person blind or does he/she have serious difficulty seeing even when wearing glasses? Answer Date of Assessment Author No 02/07/2021 4:55 PM Villa Bernal RN * Does this person have serious difficulty walking or climbing stairs? Answer Date of Assessment Author No 02/07/2021 4:55 PM Vlila Bernal RN * Does this person have difficulty dressing or bathing? Answer Date of Assessment Author No 02/07/2021 4:55 PM Villa Bernal RN * Because of a physical, mental or emotional condition, does this person have difficulty doing errands alone such as visiting a doctor's office or shopping? Answer Date of Assessment Author No 02/07/2021 4:55 PM Villa Bernal RN documented as of this encounter Mental Status * Because of a physical, mental or emotional condition, does this person have serious difficulty concentrating, remembering or making decisions? Answer Entry Date Author No 02/07/2021 4:55 PM Villa Bernal RN documented in this encounter Plan of Treatment Not on file documented as of this encounter Goals Goal Patient Goal Type Associated Problems Recent Progress Patient-Stated? Author Maintain a healthy diet, exercise regularly and maintain an ideal body weight General No Melonie Alexis MA Stay Tobacco Free Lifestyle No Melonie Alexis MA documented as of this encounter Visit Diagnoses Not on filedocumented in this encounter Care Teams Limousine And Hearse Upholsterer Relationship Specialty Start Date End Date Luis Alfredo Fried III, MD [address] [place] [address] PCP - General Family Medicine 09/23/23 Steffanie Hickey MD [address] [place] [address] Consulting Physician Internal Medicine-Endocrinology, Diabetes & Metabolism 09/11/22 Harish Bonner MD [address] [phone] Otolaryngology 02/07/24 documented as of this encounter
--- OUTSIDE RECORDS SUMMARY | 2025-11-11 16:01 | XMS_ITS | Encounter Summary ---
Author Organization [facility] Address [address] [place] [address] [place] [address] Phone Care Team Providers Care Secretary Receptionist Name Role Phone Pcp, Pending Only MD Primary Care Provider [phone] Pcp, None Primary Care Provider [phone] Encounter Details Date Type Department Care Team (Late st Contact Info) Description 08/01/2015 OB Documents [facility] [address] [place] [phone] Philip Gary Jr., MD Social History Tobacco [...] on filedocumented in this encounter Care Teams Secretary Receptionist Relationship Specialty Start Date End Date Pcp, Pending Only, [place], [place] [id number] PCP - General Internal Medicine 06/19/15 07/14/16 Pcp, None, [place] [address] PCP - General Internal Medicine 07/15/16 documented as of this encounter
--- OUTSIDE RECORDS SUMMARY | 2025-11-11 16:01 | XMS_ITS | Clinical Summary ---
Author Organization [facility] Address [address] [facility] [place] [address] Phone Care Team Providers Care Telecommunications Field Engineer Name Role Phone Steffanie Hickey MD Unavailable [phone] Fariha MICHEL MD, Luis Alfredo Bajwa Primary Care P rovider Harish Bonner MD Unavailable [phone] Allergies Active Allergy Reactions Criticality Noted [...] mouth daily. 30 Tablet 6 5 Active SENNA PLUS 8.6-50 mg Oral Tablet Take 1 Tablet by mouth daily as needed for Other. 5 Active Active Problems Patient Care Coordination [...] Noted Date Diagnosed Date Primary hypothyroidism 05/01/2025 Assessment & Plan (08/29/2025 3:28 PM EDT): Will obtain thyroid function test and adjust thyroid regimen if needed. Will continue to monitor closely Irritable bowel syndrome with constipation 02/21 Abnormal weight loss 02/16/2025 Assessment & Plan (08/29/2025 3:28 PM EDT): Will assess pituitary adrenal axis again Assessment & Plan (02/16/2025 12:28 PM EDT): [...] 07/27/2023 Goiter, nodular 09/11/2022 Assessment & Plan (08/29/2025 3:28 PM EDT): Physical exam reveals stable appearance of small nodule goiter. The patient is to have thyroid ultrasound done in 6 months to assure the anatomical stability Assessment & Plan (02/16/2025 12:28 PM EDT): Physical exam reveals barely palpable thyroid gland with no obvious nodules. She describes the same swallowing problems as she did during her previous visit in August 2022. Her swallowing problems are not related to underlying thyroid disease. She is scheduled to see contracts intern the next week. She may require ENT [...] goiter. The patient was advised to see contracts intern uterine contractions in third trimester, antepartum 02/07/2021 [...] noted on culture Tobacco abuse disorder 02/19/201402/23 Encounters Date Type Department Care Team Description 11/11/2025 Nurse Triage [facility] Nurse Now [address] [place] [address] Lucy Miranda RN 10/02/2025 Orders Only [facility] Diabetes [address] [address] Steffanie Hickey MD Abnormal weight loss (Primary Dx); Low serum cortisol level 09/21/2025 [facility] [address] [address] Steffanie Hickey MD Results 09/17/2025 Results [facility] [address] [phone] Steffanie Hickey MD COMPREHENSIVE METABOLIC PANEL, THYROID STIMULATING HORMONE, CORTISOL, Additional followed-up results: 2 08/29/2025 3:29 PM EDT - 08/29/2025 11:59 PM EDT Hospital Encounter [facility] [address] [place] [address] Primary hypothyroidism; Abnormal weight loss Discharge Disposition: Home or Self Care 08/29/2025 3:00 PM EDT [facility] [address] [address] Steffanie Hickey MD Primary hypothyroidism (Primary Dx); Goiter, nodular; Abnormal weight loss from Last 3 Months Immunizations Immunization Administration Dates Next Due DTaP [...] Sign Reading Time Taken Comments Blood Pressure 94/60 08/29/2025 3:09 PM EDT Pulse 85 08/29/2025 3:09 PM EDT Temperature 36.7 C (98.1 F) 02/25/2025 2:20 PM EDT Respiratory Rate 14 08/29/2025 3:09 PM EDT Oxygen Saturation 100% 02/25/2025 6:30 PM EDT Inhaled Oxygen Concentration - - Weight 52.9 kg (116 lb 9.6 oz) 08/29/2025 3:09 P M EDT Height 162.6 cm (5' 4 ) 08/29/2025 3:09 PM EDT Body Mass Index 20.01 08/29/2025 3:09 PM EDT Plan of Treatment Health Maintenance [...] Procedure Name Priority Date/Time Associated Diagnosis Comments DEHYDROEPIANDROSTERONE SULFATE Routine 08/29/2025 3:34 PM EDT Abnormal weight loss ADRENOCORTICOTROPIC HORMONE -REF LAB Routine 08/29/2025 3:34 PM EDT Abnormal weight loss CORTISOL Routine 08/29/2025 3:34 PM EDT Abnormal weight loss THYROID STIMULATING HORMONE Routine 11/2024 3:34 PM EDT Primary hypothyroidism COMPREHENSIVE METABOLIC PANEL Routine 08/29/2025 3:34 PM EDT Primary hypothyroidism FLUE D[facility] LABOR[facility] CYTOLOGY REQUEST (PAP ONLY) Routine 02/23/2019 2:09 PM EDT Encounter for supervision of other normal in first trimester from Last 3 Months or Most Recently Relevant to Health Maintenance Results * (ABNORMAL) DEHYDROEPIANDROSTERONE SULFATE (08/29/2025 3:34 PM EDT) Dhea Sulfate 31.60(L) 98.80 - 340.00 mcg/dL 08/29/2025 8:39 PM EDT [facility] Blood VENOUS BLOOD / Unknown Venipuncture / Unknown 08/29/2025 3:34 PM EDT 08/29/2025 3:34 PM EDT Narrative [facility] - 08/29/2025 8:39 PM EDT Ingestion of flavia doses of biotin (>5 mg/day) taken within 8 hours of drawing blood sample can interfere with this immunoassay test. us Steffanie Hickey MD CHEMISTRY ORDERABLES Final Re sult [facility] [address] [place] [address], [place] [address] * (ABNORMAL) ADRENOCORTICOTROPIC HORMONE -REF LAB (08/29/2025 3:34 PM EDT) ACTH <1.5(L) 7.2 - 63.3 pg/mL 08/31/2025 12:50 PM EDT [employer] Comment: INTERPRETIVE INFORMATION: Adrenocorticotropic Hormone Reference interval based on samples collected between 7 a.m. and 10 a.m. No reference intervals established for p.m. collections. Pediatric reference values are the same as adults (Acta Paediatr Scand 1981;70:341-345). This assay measures intact ACTH 1-39; some types of synthetic ACTH and ACTH fragments are not detected by this assay. Performed By: [facility] [employer] [address] [place] [address] Residency Director: Kalia Velazquez MD, PhD CLIA Number: [id number] Blood VENOUS BLOOD / Unknown Venipuncture / Unknown 08/29/2025 3:34 PM EDT 08/29/2025 3:34 PM EDT Steffanie Hickey MD CHEMISTRY ORDERABLES Final Re sult Performing Organization Address [facility] de Phone Number [facility] [address] [place] [address] * THYROID STIMULATING HORMONE (08/29/2025 3:34 PM EDT) TSH 2.240 0.270 - 4.200 mcIU/mL 08/29/2025 9:03 PM EDT [facility] Blood VENOUS BLOOD / Unknown Venipuncture / Unknown 08/29/2025 3:34 PM EDT 08/29/2025 3:34 PM EDT Narrative [facility] - 08/29/2025 9:03 PM EDT Ingestion of flavia doses of biotin (>5 mg/day) taken within 8 hours of drawing blood sample can interfere with this immunoassay test. us Steffanie Hickey MD CHEMISTRY ORDERABLES Final Re sult Performing Organization Address [facility] de Phone Number [facility] [address] [place] [address] , [place] [address] * CORTISOL (08/29/2025 3:34 PM EDT) Cortisol 1.13 mcg/dL 08/29/2025 8:3 9 PM EDT [facility] Blood VENOUS BLOOD / Unknown Venipuncture / Unknown 08/29/2025 3:34 PM EDT 08/29/2025 3:34 PM EDT Narrative [facility] - 08/29/2025 8:39 PM EDT AM: 4.82 - 19.5 mcg/dL This reference interval was verified on healthy individuals between the hours of 6:00 am -10:00 am. This interval may not be appropriate outside of that time range. PM: 2.47 - 11.9 mcg/dL This reference interval was verified on healthy individuals between the hours of 4:00 pm -8:00 pm. This interval may not be appropriate outside of that time range. Ingestion of flavia doses of biotin (>5 mg/day) taken within 8 hours of drawing blood sample can interfere with this immunoassay test. us Steffanie Hickey MD CHEMISTRY ORDERABLES Final Re sult [facility] [address] [facility] , [place] [address] * (ABNORMAL) COMPREHENSIVE METABOLIC PANEL (08/29/2025 3:34 PM EDT) Sodium 138 136 - 145 mmol/L 08/29/2025 9:03 PM EDT [facility] Potassium 3.8 3.5 - 5.0 mmol/L 08/29/2025 9:03 PM EDT [facility] Chloride 101 98 - 107 mmol/L 08/29/2025 9:03 PM EDT [facility] Total CO2 25 22 - 29 mmol/L 08/29/2025 9:03 PM EDT [facility] Anion Gap 12 7 - 16 mmol/L 08/29/2025 9:03 PM EDT [facility] Calcium 9.2 8.6 - 10.4 mg/dL 08/29/2025 9:03 PM EDT [facility] Glucose Lvl 115(H) 70 - 99 mg/dL 08/29/2025 9:03 PM EDT [facility] BUN 21(H) 6 - 20 mg/dL 08/29/2025 9:03 PM EDT [facility] Creatinine 0.71 0.51 - 1.30 mg/dL 08/29/2025 9:03 PM EDT [facility] Albumin 4.1 3.5 - 5.2 gm/dL 08/29/2025 9:03 PM EDT [facility] Total Protein 6.7 6.4 - 8.3 gm/dL 08/29/2025 9:03 PM EDT [facility] Bili Total 0.3 0.2 - 1.3 mg/dL 08/29/2025 9:03 PM EDT [facility], [facility] ALT 44(H) <=41 U/L 08/29/2025 9:03 PM EDT [facility] AST 25 <=40 U/L 08/29/2025 9:03 PM EDT [facility] Alk Phos 62 36 - 123 U/L 08/29/2025 9:03 PM EDT [facility] eGFR (CKD-EPIcr 2020) 115 >=60 mL/min/1.7 3 m2 08/29/2025 9:03 PM EDT [facility] Comment:Estimated GFR was ca lculated using the CKD-EPIcr (2020) equation refit without race. The equation is recommended by the National Kidney Foundation - [place] [employer] of Nephrology Task Force. Blood VENOUS BLOOD / Unknown Venipuncture / Unknown 08/29/2025 3:34 PM EDT 08/29/2025 3:34 PM EDT us Steffanie Hickey MD CHEMISTRY ORDERABLES Final Re sult [facility], [facility] [address] [facility], [address] [place] [id number] * FLUE [facility] LAB[facility] CYTOLOGY REQUEST (PAP ONLY) (02/23/2019 2:09 PM EDT) CASE REPORT Gynecologic Cytology Report Case: [id number] Authorizing Provider: Magdalena Rocha, Collected: 02/23/2019 1409 HOUSEMAID Ordering Location: [facility] Received: 02/23/2019 1409 First Screen: Sosa Moran CT Specimen: LIQUID-BASED PAP - CERVICAL/ENDOCERV ICAL, Cervix, Endocervical 02/27/2019 11:47 AM EDT [facility] PAP FINAL DIAGNOSIS Negative for intraepithelial lesion or malignancy 02/27/2019 11:47 AM EDT [facility] at 1146 EDT MICROSCOPIC DESCRIPTION Microscopic examination is performed and the findings corroborate the diagnosis. 02/27/2019 11:47 AM EDT [facility] PAP SMEAR ADEQUACY Satisfactory for evaluation 02/27/2019 11:47 AM EDT [facility] PAP ORGANISMS NOTED Abundant bacteria present. 02/27/2019 11:47 AM EDT [facility] ENDOCERVICAL T-ZONE Transformation zone present 02/27/2019 11:47 AM EDT [facility] EMBEDDED IMAGES 9 11:47 AM EDT [facility] PAP DISCLAIMER The Pap Smear is a screening test that aids in the detection of cervical cancer and cancer precursors. Both false positive and false negative results can occur. The test should be used at regular intervals, and positive results should be confirmed before definitive therapy. Processed using the [employer] InteractivePrep Manager Interface Automated cytology screening device (StatusNet). 02/27/2019 11:47 AM EDT [facility] Thin Prep ENDOCERVICAL STRUCTURE / Unknown 02/23/2019 2:09 PM EDT 02/23/2019 2:09 PM EDT Magdalena Rocha HOUSEMAID CYTOLOGY ORDERABLES nal Result [facility] [address] [place] [address] from Last 3 Months or Most Recently Relevant to Health Maintenance Insurance MDR MDR [facility] [place] [id number] MDR [facility] [place] [id number] MDR Care Teams Telecommunications Field Engineer Relationship Specialty Start Date End Date Luis Alfredo Fried III, MD [address] [place] [address] PCP - General Family Medicine 09/23/23 Steffanie Hickey MD [address] [place] [address] Consulting Physician Internal Medicine-Endocrinology, Diabetes & Metabolism 09/11/22 Harish Bonner MD [address] [facility] [address] [place] [address] Otolaryngology 02/07/24
--- OUTSIDE RECORDS SUMMARY | 2025-11-11 16:01 | XMS_ITS | Encounter Summary ---
Author Organization [place] [address] Care Team Providers Care Project Scheduler Name Role Phone Steffanie Hickey MD Unavailable [phone] Fariha MICHEL MD, Luis Alfredo Bajwa Primary Care P rovider Harish Bonner MD Unavailable [phone] Encounter Details Date Type Department Care Team (Late st Contact Info) Description 10/02/2025 Orders Only SE[facility] Diabetes [address] [address] Steffanie Hickey MD [address] [place] [address] Abnormal weight loss (Primary Dx); Low serum cortisol level Social History Tobacco Use Types Packs/Day Years [...] documented in this encounter Plan of Treatment Scheduled Orders Name Type Priority Associated Diagnoses Orde r Schedule ADRENOCORTICOTROPIC HORMONE -REF LAB Lab Routine Abnormal weight loss Low serum cortisol level Expected: 10/16/2025 (Approximate), Expires: 01/14/2026 CORTISOL Lab Routine Abnormal weight loss Low serum cortisol level Expected: 10/16/2025 (Approximate), Expires: 01/14/2026 DEHYDROEPIANDROSTERONE SULFATE Lab Routine Abnormal weight loss Low serum cortisol level Expected: 10/16/2025 (Approximate), Expires: 01/14/2026 documented as of this encounter Goals Goal Patient Goal Type Associated Problems Recent Progress Patient-Stated? Author Maintain a healthy diet, exercise regularly and maintain an ideal body weight General No Melonie Alexis MA Stay Tobacco Free Lifestyle No Melonie Alexis MA documented as of this encounter Visit Diagnoses Diagnosis Abnormal weight loss- Primary Loss of weight Low serum cortisol level Glucocorticoid deficiency documented in this encounter Care Teams Project Scheduler Relationship Specialty Start Date End Date Luis Alfredo Fried III, MD [address] [place] [phone] PCP - General Family Medicine 09/23/23 Steffanie Hickey MD [address] [place] [address] Consulting Physician Internal Medicine-Endocrinology, Diabetes & Metabolism 09/11/22 Harish Bonner MD [address] [facility] [address] [place] [address] Otolaryngology 02/07/24 documented as of this encounter
--- OUTSIDE RECORDS SUMMARY | 2025-11-11 16:01 | XMS_ITS | Encounter Summary ---
Author Organization [facility] Address [facility] [place] [address] Phone Care Team Providers Care Inbound Sales Advisor Name Role Phone Pcp, Won MD Primary Care Provider [phone] Encounter Details Date Type Department Care Team (Late st Contact Info) Description 10/15/2016 SCAN [facility] Women's Services - [employer] Consultant [address] [place] [address] Social History Tobacco Use Types [...] LABORATORY Final Result * CYTOLOGY (05/22/2015) us [facility] LABORATORY Final Result documented in this encounter Visit Diagnoses Not on filedocumented in this encounter Care Teams Inbound Sales Advisor Relationship Specialty Start Date End Date Pcp, None, PCP - General Internal Medicine 07/15/16 documented as of this encounter
--- OUTSIDE RECORDS SUMMARY | 2025-11-11 16:01 | XMS_ITS | Encounter Summary ---
Author Organization [facility] Address [facility] [place] [address] Phone Care Team Providers Care Printer Helper Name Role Phone Pcp, None MD Primary Care Provider [phone] Reason for Referral * Radiology Services (Routine) - Closed Specialty Diagnoses / Procedures Referred By Contgavino t Referred To Contact Procedures OB US STANDARD SECOND OR THIRD TRIMESTER HISTORICAL MED Referral ID Status Reason Start Date Expiration Date V isits Requested Visits Authorized [id number] Closed Specialty Services Required 05/05/2019 05/04/2020 150 150 Encounter Details Date Type Department Care Team (Late st Contact Info) Description 05/05/2019 SCAN [facility] [address] [place] [address] Social History Tobacco Use Types Packs/Day Years [...] on filedocumented in this encounter Care Teams Printer Helper Relationship Specialty Start Date End Date Pcp, Won, PCP - General Internal Medicine 07/15/16 documented as of this encounter
--- OUTSIDE RECORDS SUMMARY | 2025-11-11 16:01 | XMS_ITS | Encounter Summary ---
Author Organization [facility] Address [facility] [place] [address] Phone Care Team Providers Care Cellular Equipment Repairer Name Role Phone Pcp, Pending Only Primary Care Provider [phone] Pcp, None Primary Care Provider [phone] Encounter Details Date Type Department Care Team (Late st Contact Info) Description 07/04/2015 OB [facility] [address] [place] [phone] Lula Cruz Registered Nurse Social History Tobacco [...] on filedocumented in this encounter Care Teams Cellular Equipment Repairer Relationship Specialty Start Date End Date Pcp, Pending Only, [place], [place] [phone] PCP - General Internal Medicine 06/19/15 07/14/16 Pcp, None, [place] [address] PCP - General Internal Medicine 07/15/16 documented as of this encounter
--- OUTSIDE RECORDS SUMMARY | 2025-11-11 16:01 | XMS_ITS | Encounter Summary ---
Author Organization [place] [address] Care Team Providers Care Fish Filleter Name Role Phone Steffanie Hickey MD Unavailable [phone] Fariha MICHEL MD, Luis Alfredo Bajwa Primary Care P rovider Harish Bonner MD Unavailable [phone] Reason for Visit * Reason Onset Date Comments Skin Symptoms 11/11/2025 Encounter Details Date Type Department Care Team (Late st Contact Info) Description 11/11/2025 Nurse Triage [facility] Nurse Now [address] [place] [address] Lucy Miranda RN Social History Tobacco Use Types Packs/Day Years [...] Villa Bernal RN documented in this encounter Miscellaneous Notes * Telephone Encounter - Lucy Miranda RN - 11/11/2025 11:43 AM EST Nurse Triage Call -Chief Complaint: pt has cellulitus on L middle finger, was seen at urgent care 3 days ago, startedon antibiotics. has pus pocket in center now, denies fevers. redness is spreading, constant throbbing pain. 07/08 -Reported by: Patient -Vitals: No vitals obtained on this call -Disposition per protocol: go to ED now. -Appointment scheduling not applicable based on clinical presentation -Follow up/Concerns: verbalized understanding Reason for Disposition [1] SEVERE pain with bending of finger (or toe) AND [2] cellulitis on hand (or foot) Protocols used: Cellulitis on Antibiotic Follow-up Call-A- documented in this encounter Plan of Treatment [...] on filedocumented in this encounter Care Teams Fish Filleter Relationship Specialty Start Date End Date Luis Alfredo Fried III, MD [address] [place] [address] PCP - General Family Medicine 09/23/23 Steffanie Hickey MD [address] [place] [address] Consulting Physician Internal Medicine-Endocrinology, Diabetes & Metabolism 09/11/22 Harish Bonner MD [address] [facility] [address] [place] [address] Otolaryngology 02/07/24 documented as of this encounter
--- OUTSIDE RECORDS SUMMARY | 2025-11-11 16:01 | XMS_ITS | Clinical Summary ---
Author Organization [facility] Address [address] [place] [address] Care Team Providers Care Lock Setter Name Role Phone Arianne Menjivar MD Primary [...] of Treatment Not on file Insurance MEDICAID Care Teams Lock Setter Relationship Specialty Start Date End Date Arianne Menjivar MD PCP - General 04/11/21
--- OUTSIDE RECORDS SUMMARY | 2025-11-11 16:01 | XMS_ITS | Encounter Summary ---
Author Organization [place] [address] Care Team Providers Care Process Assistant Name Role Phone Steffanie Hickey MD Unavailable Fariha MICHEL MD, Luis Alfredo Bajwa Primary Care P rovider Harish Bonner MD Unavailable [phone] Reason for Visit * Reason Onset Date Comments Results 09/21/2025 Encounter Details Date Type Department Care Team (Late st Contact Info) Description 09/21/2025 Telephone [facility] Physicians [facility] Diabetes [place] [address] [facility] [address] [place], [place] [id number] Steffanie Hickey MD [address] [place] [address] Results Social History Tobacco Use Types Packs/Day Years [...] Entry Date Author No 02/07/2021 4:55 PM iVlla Bernal RN documented in this encounter Miscellaneous Notes * Telephone Encounter - Elenita Ramirez LPN - 10/08/2025 2:17 PM EST Patient notified of results and recommendations. Patient verbalized understanding.Lab orders updated via provider. * Telephone Encounter - Steffanie Hickey MD - 10/02/2025 6:57 AM EST She needs to have cortisol level rechecked in 2 to 3 weeks. It is a fasting blood test that needs to be done before 9 AM. Previous cortisol test was affected by Medrol pack that she had taken at the end of July. Thank you * Telephone Encounter - Elenita Ramirez LPN - 09/27/2025 11:50 AM EDT Patient notified of results. Patient verbalized understanding. Patient reporting she was taking steroid Medrol pack a couple of weeks ago. * Telephone Encounter - Steffanie Hickey MD - 09/21/2025 6:23 AM EDT Please notify the patient about unread MyChart message. Thank you Kidney, liver, electrolytes levels are all stable. Thyroid test is normal. Please continue present levothyroxine regimen. Hormonal testing showed that you may have taken steroids. Did you take Medrol pack few weeks ago? documented in this encounter Plan of Treatment [...] on filedocumented in this encounter Care Teams Process Assistant Relationship Specialty Start Date End Date Luis Alfredo Fried III, MD [address] [place] [address] PCP - General Family Medicine 09/23/23 Steffanie Hickey MD [address] [place] [address] Consulting Physician Internal Medicine-Endocrinology, Diabetes & Metabolism 09/11/22 Harish Bonner MD [address] [facility] [address] [place] [id number] Otolaryngology 02/07/24 documented as of this encounter
--- OUTSIDE RECORDS SUMMARY | 2025-11-11 16:01 | XMS_ITS | Clinical Summary ---
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 Cervical/Endocervic al thinprep pap: Adequacy: Unsatisfactory for evaluation. Specimen processed and examined, but unsatisfactory for evaluation of epithelial abnormality due to scant cellular material/acellulari ty. Interpretation: Adequacy Unsatisfactory This specimen has been analyzed by the ThinPrep Imaging System ([employer] an automated imaging and review system, which assists the ski patrol director and/or pathologist in evaluation of cells on Thinprep Pap tests. Electronically Signed Out By WILLIAM [facility] Source of Specimen(s) A: Cervical/Endocervic al thinprep pap Clinical History Date of Last Menstrual Period: 04/25/2020 Signed out at [facility], [address], [facility] Non-Formatted Report (A) [facility] 05/13/2020 5:50 PM EDT 05/15/2020 9:42 AM EDT us Philip Gary Jr., MD PATHOLOGY/CYTOLOGY ORDER ZENON Final Result [facility] [address] [place], [place] [id number] from Last 3 Months or Most Recently Relevant to Health Maintenance Insurance ALL OTHERS Advance Directives * Full Code (Latest Code Status on File) Date Activated Date Inactivated Comments 10/27/2015 12:55 PM 10/29/2015 3:20 PM * Full Code Date Activated Date Inactivated Comments 10/27/2015 5:41 AM 10/27/2015 12:55 PM Care Teams Car Sales Representative Relationship Specialty Start Date End Date Pcp, MD Won PCP - General Internal Medicine 07/15/16
--- NOTE | 2025-11-11 16:13 | ED_ITS ---
<Statement entered by Kat Velazquez DO - 11/11/25 23:51> I was consulted by the CARLOS ALBERTO, and we discussed the complexity of problems being addressed. I approve the treatment and management plan for this patient's care in the emergency department, thus performing a substantial portion of the medical decision making. Kat Velazquez DO Discharge Plan Disposition Patient Disposition: Home, Self-Care Prescriptions Prescriptions: New doxycycline monohydrate 100 mg capsule 100 mg PO BID 10 Days Qty: 20 0RF No Action levothyroxine 25 mcg tablet 25 mcg PO DAILY Patient Comments: TAKE 1 TABLET BY MOUTH ONCE DAILY sennosides-docusate sodium [Senna Plus] 8.6-50 mg tablet 1 tab-cap PO BID PRN (Reason: constipation) Qty: 60 0RF Referrals Follow up/Referrals: Min Watkins DO [Staff Physician, Family Practice] - See instructions Provider,Referral, [Primary Care Provider, Medical] - See instructions Activity Restrictions/Add. Instructions Additional Instructions/Restrictions: You were seen for a finger abscess/ felon. Start taking doxycycline with your cephalexin. Return here for worsening symptoms. See your PCP this week. Clinical Impressions Clinical Impression: Felon of digit Stand Alone Forms Stand Alone Forms: Work/School Release Instructions Patient Instructions: DI for Skin Abscess Print Language Print Language: Sri Lankan Discharge ED Provider: Kat Velazquez General Adult HPI <Kat Velazquez DO - Last Filed: 11/11/25 23:52> General Chief complaint: Skin/Abscess/Foreign Body Stated complaint: Left to middle finger inflammation Time Seen by Provider: 11/11/25 16:02 Related Data Home Medications ?Medication ?Instructions ?Recorded ?Confirmed levothyroxine 25 mcg tablet 25 mcg PO DAILY 08/19/25 1 12/18/24 Previous Rx's ?Medication ?Instructions ?Recorded sennosides 8.6 mg-docusate sodium 1 tab-cap PO BID PRN constipation 08/19/25 50 mg tablet (Senna Plus) #60 tabs doxycycline monohydrate 100 mg 100 mg PO BID 10 days # 20 caps 11/11/25 capsule Allergies Allergy/AdvReac Type Severity Reaction Status Date / Time sulfamethoxazole (From Allergy Mild Hives Verified 11/11/25 15:41 BACTRIM) trimethoprim (From BACTRIM) Allergy Unknown Hives Verified 11/11/25 15:41 <ROSEMARY Cleveland - Last Filed: 11/11/25 21:57> General Mode of Arrival: Ambulatory Source of Information: Patient Description of Symptoms (Recalled from ER Triage Doc. by RN): Patient states she has had redness and swelling to area around nail of left middle finger for about a week. She was seen at [facility] on 11/08/25 and given steroid and antibiotic shot and prescribed Keflex twice daily (she is unsure of dose). Patient states she feels like finger has gotten a little better, but now has pus under skin and it has gotten her worried. History of Present Illness HPI narrative: Patient presents with pain, swelling, erythema to the left third digit. She has febrile up to 100.8 today. She is taking cephalexin and is on her third day of treatment. Symptoms started 1 week ago. She felt she may have cut herself with some plastic initially however felt this was healing well. MD complaint: cellulitis Onset (ago): day(s) Location: left and upper extremity Radiation: non-radiation Quality: other (throbbing) Consistency: constant Relieving factors: none Exacerbating factors: none Associated symptoms: fever/chills Treatments prior to arrival: other (cephalexin) [facility] <Kat Velazquez DO - Last Filed: 11/11/25 23:52> [facility] Medical History Cellulitis Hyperthyroidism Surgical History H/O tubal ligation right tube H/O oophorectomy rt ovary Social History Smoking Status: Current every day smoker alcohol intake: never current occupational status: employed Travel in the last 8 weeks?: None Have you lived/traveled outside US in past 30 days?: No Contact w/someone who lives/traveled outside US past 30 days?: No Exposure to someone with infectious disease in past 14 days?: No Do you have a fever (greater than 100.4 F or 38 C)?: No Have you tested positive for COVID-19?: No Exposed to someone with COVID-19 in past 14 days?: No Do you have a sore throat?: No Do you have a cough?: No Do you have any weakness?: No Do you have any diarrhea?: No Are you experiencing any unusual bleeding?: No Do you have any muscle aches/pain?: No Do you have any abdominal pain?: No Are you experiencing loss of taste or smell?: No <ROSEMARY Cleveland - Last Filed: 11/11/25 21:57> [facility] Disclaimer: The information contained in this section may have been updated after the patient was seen, as this information can be updated by other users. Other Medical History Have you received the Flu Vaccine for this season: No Have you received the Pneumonia Vaccine: No <ROSEMARY Cleveland - Last Filed: 11/11/25 21:57> ROS Obtained: Yes Systems reviewed as appropriate & no additional complaints except as documented Physical Exam <ROSEMARY Cleveland Last Filed: 11/11/25 21:57> General General appearance: alert and in no apparent distress Head Head exam: atraumatic and normocephalic Eye Eye exam: Present normal appearance and EOMI Chest Chest inspection: Present symmetric chest wall rise Respiratory Respiratory exam: Present normal lung sounds bilaterally; Absent wheezes or stridor Cardiovascular Cardiovascular exam: Present regular rate and normal rhythm; Absent systolic murmur Extremities Exam Extremities exam: Present other (Left third digit lateral aspect has a collection of purulent fluid with surrounding erythema, edema extending to the dorsal aspect. Full range of motion, neurovascularly intact) Neurological Exam Neurological exam: Present alert and oriented X3 Psychiatric Psychiatric exam: Present normal affect and normal mood Skin Skin exam: Present warm, dry and other (See musculoskeletal) Medical Decision Making <Kat Velazquez DO - Last Filed: 11/11/25 23:52> Vital Signs: 11/11/25 15:30 11/11/25 16:14 11/11/25 18:15 Temperature 99 F 100.8 F H 100.8 F H Temperature Source Oral Oral Oral Pulse Rate 87 Pulse Rate [Right Brachial] 87 Respiratory Rate 16 16 Blood Pressure 117/63 Blood Pressure [Right Arm] 117/63 Blood Pressure Mean [Right Arm] 81 Blood Pressure Source Automatic Cuff Blood Pressure Source [Right Arm] Automatic Cuff Blood Pressure Position Sitting Blood Pressure Position [Right Arm] Sitting 02 Sat by Pulse Oximetry 99 Oxygen Delivery Method Room Air Room Air Lab Data Lab results reviewed: Yes I reviewed the patient's lab results. Lab Results 11/11/25 16:26: WBC 7.3, RBC 4.11 L, Hgb 12.4, Hct 38.2, MCV 92.9, MCH 30.2, MCHC 32.5, RDW 12.2, Plt Count 254, MPV 9.6, Neut % (Auto) 74.9, Lymph % (Auto) 17.9, Lake % (Auto) 5.5, Eos % (Auto) 1.1, Baso % (Auto) 0.5, Neut # (Auto) 5.5, Lymph # (Auto) 1.3, Lake # (Auto) 0.4, Eos # (Auto) 0.1, Baso # (Auto) 0.0, ESR 11, Sodium 136, Potassium 3.9, Chloride 103, Carbon Dioxide 29, Anion Gap 7.9, BUN 17, Creatinine 0.80, Estimated Creat Clear 95, Estimated GFR 83, Est GFR ( Amer) 100, Glucose 126 H, Calcium 9.3, Total Bilirubin 0.6, AST 34, ALT 25, Alkaline Phosphatase 47, C-Reactive Protein 0.3, Total Protein 7.8, Albumin 4.9, Globulin 2.9, Albumin/Globulin Ratio 1.7 11/11/25 16:26 11/11/25 16:26 Orders (Tests/Meds): ED MEDICATIONS Discontinued Medications Generic Name Dose Route Start Last Admin Trade Name Freq PRN Reason Stop Dose Admin Doxycycline Hyclate 100 mg 11/11/25 17:59 11/11/25 18:09 Doxycycline Hycl 100 Mg Tablet PO 11/11/25 18:00 100 mg ONCE ONE Administration Lidocaine HCl 5 ml 11/11/25 17:02 11/11/25 17:12 Lidocaine 1% 5ml Pf Vial IJ 11/11/25 17:03 5 ml ONCE ONE Administration Sodium Chloride 10 ml 11/11/25 16:21 Sodium Chloride 0.9% 10ml Flush Syringe IV 12/11/25 16:20 NEEDED PRN Maintain IV Site ORDERS Category Date Time Status CBC w/Auto Diff [Complete Blood Count Auto Diff] Stat Lab 11/11/25 16:26 Completed CMP [Comprehensive Metabolic Panel] Stat Lab 11/11/25 16:26 Completed CRP [C-Reactive Protein] Stat Lab 11/11/25 16:26 Completed ESR [Erythrocyte Sedimentation Rate] Stat Lab 11/11/25 16:26 Completed Medical Decision Narrative: In summary patient is a 35-year-old female who presents the emergency department for evaluation of erythema and swelling to the finger. Patient is upon arrival, febrile. Evidence of felon with abscess on exam. Differential diagnosis includes abscess, cellulitis, sepsis. Initial workup will be conducted with hematologic lab. Initial workup reviewed by me unremarkable. Patient was anesthetized with a digital block and small abscess was drained. Upon repeat evaluation patient is resting comfortable. Given this patient will be discharged home with addition of doxycycline to the Keflex she is taking. She understands return precautions and need for follow-up. Kat Velazquez DO Patient's exam was not consistent with flexor tenosynovitis. Patient had full range of motion of her finger. Patient's exam most consistent with a felon. Given that I&D was performed I felt that patient was appropriate for discharge with additional MRSA coverage. Patient was given return precautions for worsening symptoms. At this time patient was discharged home. <ROSEMARY Cleveland - Last Filed: 11/11/25 21:57> Medical Records Screening: Per USPSTF and CDC recommendations, given the prevalence of disease in our region, it is our hospital?s policy to screen for HIV and viral Hepatitis for all patients aged 18 and over and those with ongoing risk factors. Zeferino Inquiry Pt receiving controlled substance: No Vital Signs: 11/11/25 15:30 11/11/25 16:14 11/11/25 18:15 Temperature 99 F 100.8 F H 100.8 F H Temperature Source Oral Oral Oral Pulse Rate 87 Pulse Rate [Right Brachial] 87 Respiratory Rate 16 16 Blood Pressure 117/63 Blood Pressure [Right Arm] 117/63 Blood Pressure Mean [Right Arm] 81 Blood Pressure Source Automatic Cuff Blood Pressure Source [Right Arm] Automatic Cuff Blood Pressure Position Sitting Blood Pressure Position [Right Arm] Sitting 02 Sat by Pulse Oximetry 99 Oxygen Delivery Method Room Air Room Air Lab Data Lab Results 11/11/25 16:26: WBC 7.3, RBC 4.11 L, Hgb 12.4, Hct 38.2, MCV 92.9, MCH 30.2, MCHC 32.5, RDW 12.2, Plt Count 254, MPV 9.6, Neut % (Auto) 74.9, Lymph % (Auto) 17.9, Lake % (Auto) 5.5, Eos % (Auto) 1.1, Baso % (Auto) 0.5, Neut # (Auto) 5.5, Lymph # (Auto) 1.3, Lake # (Auto) 0.4, Eos # (Auto) 0.1, Baso # (Auto) 0.0, ESR 11, Sodium 136, Potassium 3.9, Chloride 103, Carbon Dioxide 29, Anion Gap 7.9, BUN 17, Creatinine 0.80, Estimated Creat Clear 95, Estimated GFR 83, Est GFR ( Amer) 100, Glucose 126 H, Calcium 9.3, Total Bilirubin 0.6, AST 34, ALT 25, Alkaline Phosphatase 47, C-Reactive Protein 0.3, Total Protein 7.8, Albumin 4.9, Globulin 2.9, Albumin/Globulin Ratio 1.7 Orders (Tests/Meds): ED MEDICATIONS Discontinued Medications Generic Name Dose Route Start Last Admin Trade Name Freq PRN Reason Stop Dose Admin Doxycycline Hyclate 100 mg 11/11/25 17:59 11/11/25 18:09 Doxycycline Hycl 100 Mg Tablet PO 11/11/25 18:00 100 mg ONCE ONE Administration Lidocaine HCl 5 ml 11/11/25 17:02 11/11/25 17:12 Lidocaine 1% 5ml Pf Vial IJ 11/11/25 17:03 5 ml ONCE ONE Administration Sodium Chloride 10 ml 11/11/25 16:21 Sodium Chloride 0.9% 10ml Flush Syringe IV 12/11/25 16:20 NEEDED PRN Maintain IV Site ORDERS Category Date Time Status CBC w/Auto Diff [Complete Blood Count Auto Diff] Stat Lab 11/11/25 16:26 Completed CMP [Comprehensive Metabolic Panel] Stat Lab 11/11/25 16:26 Completed CRP [C-Reactive Protein] Stat Lab 11/11/25 16:26 Completed ESR [Erythrocyte Sedimentation Rate] Stat Lab 11/11/25 16:26 Completed Medical Decision Narrative: In summary patient is a 35-year-old female who presents the emergency department for evaluation of erythema and swelling to the finger. Patient is upon arrival, febrile. Evidence of felon with abscess on exam. Differential diagnosis includes abscess, cellulitis, sepsis. Initial workup will be conducted with hematologic lab. Initial workup reviewed by me unremarkable. Patient was anesthetized with a digital block and small abscess was drained. Upon repeat evaluation patient is resting comfortable. Given this patient will be discharged home with addition of doxycycline to the Keflex she is taking. She understands return precautions and need for follow-up. Procedures <ROSEMARY Cleveland - Last Filed: 11/11/25 21:57> Abscess I/D Side (if applicable): left Local Anesthetic: lidocaine 1% Amount of anesthesia used (mL): 2 Technique: incised with #11 blade Amount of fluid expressed (mL): 0.5 Packing used?: none Complications: other (none) Critical Care <ROSEMARY Cleveland - Last Filed: 11/11/25 21:57> Critical Care Time Critical Care Time: No
[2025-11-11 16:14] VITALS: TEMP 38.2
[2025-11-11 16:32] LABS: Hematocrit 38.2 % (37.0-47.0); Hemoglobin 12.4 g/dL (12.2-16.2); Immature Granulocytes % 0.1 %; Mean Corpuscular HGB Conc 32.5 g/dL (31.8-35.4); Mean Corpuscular Hemoglobin 30.2 pg (27.0-31.2); Mean Corpuscular Volume 92.9 fl (81-99); Nucleated Red Blood Cells % 0 %; Platelet Count 254 K/mm3 (142-424); Red Blood Count 4.11 M/mm3 (4.20-5.40); Red Cell Distribution Width-SD 42.0 fL; White Blood Count 7.3 K/mm3 (4.8-10.8)
[2025-11-11 16:46] LABS: Albumin Level 4.9 g/dl (3.5-5.0); Chloride 103 mmol/L (98-107)
[2025-11-11 16:47] LABS: Potassium 3.9 mmoL/L (3.5-5.1); Sodium 136 mmol/L (136-145)
[2025-11-11 16:49] LABS: Blood Urea Nitrogen 17 mg/dl (7-17); Creatinine Clearance Estimated 95 mL/min (50-200); Creatinine,Serum 0.80 mg/dl (0.52-1.04); Estimated Glomerular Filt Rate 83 ml/min (>60); GFR (African American) 100 ML/MIN (>60)
[2025-11-11 16:50] LABS: Alanine Aminotransferase 25 U/L (12-78); Albumin/Globulin Ratio 1.7 (1.1-1.8); Alkaline Phosphatase 47 U/L (38-126); Anion Gap 7.9 mEq/L (5-15); Aspartate Amino Transferase 34 U/L (14-36); Bilirubin,Total 0.6 mg/dl (0.2-1.3); Calcium 9.3 mg/dl (8.4-10.2); Carbon Dioxide 29 mmol/L (22.0-30.0); Globulin 2.9 g/dL (1.3-3.2); Glucose 126 mg/dl (74-100); Total Protein,Serum 7.8 g/dl (6.3-8.2)
[2025-11-11 16:55] LABS: C-Reactive Protein 0.3 mg/L (0-4)
[2025-11-11] MEDS: LIDOCAINE 1% 5ML PF VIAL 5 ML IJ (17:12)
[2025-11-11] MEDS: DOXYCYCLINE HYCL 100 MG TABLET PO (18:09)
[2025-11-11 18:15] VITALS: BP 117/63; PULSE 87; RESP 16; TEMP 38.2; O2SAT 99
== END 2025-11-11 18:16 | disposition home or self-care (01) ==
PROVIDERS: Physician Assistant; Emergency Provider Student in an Organized Health Care Education/Training Program
DX: L03.012 Cellulitis of left finger (principal)
CPT/HCPCS: 10060; 80053; 85025; 85651; 86140; 99283; 99284; J2003